=== PATIENT | female | born 1990 ===

== ENCOUNTER 2020-03-29 16:33 | Outpatient (REF) | payer OTHER, SELFPAY ==
[2020-03-29 17:06] LABS: MANUAL DIFF FLAG NO
[2020-03-29 17:10] LABS: Basophils Percent Auto 0.3 % (0-2); Eosinophils Absolute Auto 0.2 X10*3/uL (0.0-0.4); Eosinophils Percent Auto 1.7 % (0-4); Hematocrit 39.5 % (37-47); Hemoglobin 12.3 g/dl (12.0-16.0); Imm Gran Abs Auto 0.05 X10*3/uL (0.00-0.03); Imm Gran Pct Auto 0.4 % (0.0-0.4); Lymphocytes Absolute Auto 4.6 X10*3/uL (1.2-4.9); Lymphocytes Percent Auto 38.7 % (20-40); Mean Corpuscular HGB Conc 31.1 g/dl (31.0-35.0); Mean Corpuscular Hemoglobin 25.9 pg (27.0-33.0); Mean Corpuscular Volume 83.3 fL (80-98); Mean Platelet Volume 9.4 fL (9.4-12.3); Monocytes Absolute Auto 0.6 X10*3/uL (0.1-1.2); Monocytes Percent Auto 5.3 % (2-11); Neutrophils Absolute Auto 6.3 X10*3/uL (2.0-8.3); Neutrophils Percent Auto 53.6 % (45-73); Platelet Count 372 X10*3/uL (160-400); Red Blood Count 4.74 X10*6/uL (4.20-5.50); Red Cell Distribution Width 14.8 % (11.0-16.0); White Blood Count 11.8 X10*3/uL (4.8-10.8)
[2020-03-29 17:19] LABS: Estimated Average Glucose 111 mg/dL; Hemoglobin A1c % 5.5 %
[2020-03-29 17:29] LABS: Alanine Aminotransferase 23 U/L (0-31); Albumin Level 4.1 g/dL (3.5-5.0); Alkaline Phosphatase 83 U/L (39-117); Anion Gap 14 (12-20); Aspartate Amino Transferase 18 U/L (5-31); Bilirubin Total 0.2 mg/dL (0.0-1.0); Blood Urea Nitrogen 10 mg/dL (9-16); Calcium 8.9 mg/dL (8.4-10.2); Carbon Dioxide 26 mmol/L (22-29); Chloride 102 mmol/L (96-108); Cholesterol 204 mg/dL; Estimated Glomerular Filt Rate > 60; Glucose Random 92 mg/dL (60-115); HDL Cholesterol 48 mg/dL; LDL Cholesterol Calculated 127 mg/dl; Potassium 4.6 mmol/l (3.3-5.1); Sodium 137 mmol/L (135-145); Total Protein 6.8 g/dL (6.5-8.0); Triglycerides 145 mg/dL
[2020-03-29 17:52] LABS: Thyroid Stimulating Hormone 2.45 uIU/mL (0.32-4.0)
== END 2020-03-29 16:34 | disposition home or self-care (01) ==
LOC: HO.LAB 16:33
PROVIDERS: PCP Internal Medicine; Visit Provider Internal Medicine
DX: E28.2 Polycystic ovarian syndrome (principal); E88.9 Metabolic disorder, unspecified; E66.9 Obesity, unspecified; Z68.44 Body mass index [BMI] 60.0-69.9, adult; Z72.0 Tobacco use
CPT/HCPCS: 36415; 80053; 80061; 83036; 84443; 85025

== ENCOUNTER 2020-12-07 11:26 | Outpatient (REF) | payer OTHER, SELFPAY ==
[2020-12-07 14:06] LABS: MANUAL DIFF FLAG NO
[2020-12-07 14:15] LABS: Basophils Percent Auto 0.2 % (0-2); Eosinophils Absolute Auto 0.1 X10*3/uL (0.0-0.4); Eosinophils Percent Auto 1.3 % (0-4); Hematocrit 37.8 % (37-47); Hemoglobin 11.7 g/dl (12.0-16.0); Imm Gran Abs Auto 0.06 X10*3/uL (0.00-0.03); Imm Gran Pct Auto 0.6 % (0.0-0.4); Lymphocytes Absolute Auto 3.8 X10*3/uL (1.2-4.9); Lymphocytes Percent Auto 35.7 % (20-40); Mean Corpuscular Hemoglobin 25.3 pg (27.0-33.0); Mean Corpuscular Volume 81.8 fL (80-98); Mean Platelet Volume 9.8 fL (9.4-12.3); Monocytes Absolute Auto 0.6 X10*3/uL (0.1-1.2); Monocytes Percent Auto 5.6 % (2-11); Neutrophils Absolute Auto 6.1 X10*3/uL (2.0-8.3); Neutrophils Percent Auto 56.6 % (45-73); Platelet Count 402 X10*3/uL (160-400); Red Blood Count 4.62 X10*6/uL (4.20-5.50); Red Cell Distribution Width 15.5 % (11.0-16.0); White Blood Count 10.7 X10*3/uL (4.8-10.8)
[2020-12-07 14:27] LABS: Estimated Average Glucose 111 mg/dL; Hemoglobin A1c % 5.5 %
[2020-12-07 14:31] LABS: Alanine Aminotransferase 27 U/L (0-31); Albumin Level 4.3 g/dL (3.5-5.0); Alkaline Phosphatase 81 U/L (39-117); Anion Gap 15 (12-20); Aspartate Amino Transferase 22 U/L (5-31); Bilirubin Total 0.4 mg/dL (0.0-1.0); Blood Urea Nitrogen 8 mg/dL (9-16); Calcium 9.5 mg/dL (8.4-10.2); Carbon Dioxide 24 mmol/L (22-29); Chloride 103 mmol/L (96-108); Cholesterol 211 mg/dL; Estimated Glomerular Filt Rate > 60; Glucose Fasting 93 mg/dL (60-99); HDL Cholesterol 48 mg/dL; LDL Cholesterol Calculated 145 mg/dl; Potassium 4.8 mmol/L (3.3-5.1); Sodium 137 mmol/L (135-145); Total Protein 7.1 g/dL (6.5-8.0); Triglycerides 94 mg/dL
[2020-12-07 14:45] LABS: Thyroid Stimulating Hormone 2.13 uIU/mL (0.32-4.0)
== END 2020-12-07 11:27 | disposition home or self-care (01) ==
LOC: HO.10HDL 11:26
PROVIDERS: Visit Provider Internal Medicine
DX: Z00.01 Encounter for general adult medical examination with abnormal findings (principal); E66.01 Morbid (severe) obesity due to excess calories; M94.0 Chondrocostal junction syndrome [Tietze]; Z72.0 Tobacco use
CPT/HCPCS: 36415; 80053; 80061; 83036; 84443; 85025

== ENCOUNTER 2020-12-29 18:58 | Emergency (ER) | payer OTHER, SELFPAY ==
--- NOTE | ~2020-12-29 | US_ITS ---
EXAMINATION: US DIAGNOSTIC ULTRASOUND BREAST, LEFT CLINICAL INFORMATION: Inverted nipple., Pain COMPARISON: None. TECHNIQUE: Ultrasound of the breast is performed with real-time delaney scale imaging and color Doppler. FINDINGS: There is a irregular margin hypoechoic area behind the nipple on left. This measures 2 x 2 x 2 centimeters. There is internal vascularity. Labeled by the ammunition specialist at 12:00. Comparison imaging of the right breast shows no finding behind the nipple on the right. US/US breast LT limited IMPRESSION: This exam is abnormal Behind the nipple on left demonstrates a irregular margin hypoechoic structure emanating up to the nipple with internal vascularity. There is no shadowing. Differential may include an inflammatory process versus malignancy ASSESSMENT: BI-RADS 0: Incomplete - Need Additional Imaging Evaluation RECOMMENDATION: Diagnostic mammogram left breast. Surgical consultation recommended.
[2020-12-29 19:03] VITALS: BP 129/82; PULSE 89; RESP 16; TEMP 36.3; O2SAT 99; BMI 66.4
--- NOTE | 2020-12-29 21:33 | ED_ITS ---
HPI - General Adult General Chief complaint: General Medical Stated complaint: Lump on breast Time Seen by Provider: 12/29/20 21:23 Source: patient Mode of arrival: ambulatory Limitations: no limitations History of Present Illness HPI narrative: To the emergency room complaining of left-sided breast/nipple pain. Patient states that for several months she has had occasional pain in the left breast, however over the last few days she has noticed a lump under the nipple, no nipple discharge, patient states that her nipple is looking different, now slightly inverted. Patient denies fever, chills, no recent traum a/ring insertion Related Data Previous Rx's Medication Instructions Recorded cephalexin 750 mg capsule (Keflex) 750 mg PO BID #14 cap 12/29/20 doxycycline hyclate 100 mg capsule 100 mg PO DAILY #14 cap 12/29/20 Allergies Allergy/AdvReac Type Severity Reaction Status Date / Time No Known Allergies Allergy Verified 12/29/20 21:18 [No Known Allergies*] Review of Systems Review of Systems: Constitutional : No Weight loss, No Fever, No Chills, No Night Sweats, No Fatigue, No Malaise ENT/Mouth : No Hearing loss, No Ear Pain, No Nasal Congestion, No Sinus Pain, No Hoarseness, No sore throat, No Rhinorrhea, No Swallowing Difficulty Eyes: No Eye Pain, No Swelling, No Redness, No Foreign Body, No Discharge, No Vision Changes Cardiovascular : No Chest Pain, No SOB, No Dyspnea on Exertion, No Orthopnea, No Edema, No Palpitations Respiratory : No Cough, No Sputum, No Wheezing, No Smoke Exposure, No Dyspnea Gastrointestinal : No Nausea, No Vomiting, No Diarrhea, No Constipation, No abdominal Pain, No Hematochezia, No Melena Genitourinary : no irregular bleeding, No Dysuria, No Urinary Frequency, No Hematuria, No Urinary Incontinence, No Urgency, No Flank Pain, No Urinary Flow Changes, No Hesitancy Musculoskeletal : No joint pain, No Myalgias, No Joint Swelling Skin : Complaining of breast pain/nipple pain Neuro : No Weakness, No Numbness, No Paresthesias, No Loss of Consciousness, No Dizziness, No Headache Psych : No Anxiety/Panic, No Depression, No SI/HI/AH/VH, No Social Issues, Heme/Lymph: No Bruising, No Bleeding,No Lymphadenopathy Endocrine : No Polyuria, No Polydipsia, No Temperature Intolerance [facility] Family History Family History (Updated 12/29/20 @ 23:33 by Lawanda Monaco MD) Maternal Aunt Breast cancer Social History Social History Advance Directives: No Advance Directives Information Provided: No Patient : No Physical Exam Vital Signs: Vital Signs: Last Vital Signs Temp 97.4 F 12/29/20 19:03 Pulse 89 12/29/20 19:03 Resp 16 12/29/20 19:03 BP 129/82 12/29/20 19:03 Pulse Ox 99 12/29/20 19:03 Body Mass Index 66.4 Const: Other: Appearance: Alert. Oriented X3. No acute distress. Eyes: Pupils equal, round and reactive to light. ENT: Pharynx normal. Neck: Normal inspection. Neck supple. No lymph nodes noted. No crepitus CVS: Normal heart rate and rhythm. Pulses normal. Normal S1 and S2 Respiratory: No respiratory distress. Breath sounds normal. No Wheezing. No rales Abdomen: Soft and nontender. No rigidity. No distention. good BS x4 Skin: Skin warm and dry. Normal skin color. Normal skin turgor. Palpable 1 mm mass under the left nipple, no discharge from the nipple, nipple is flat, minimally inverted Extremities: No lower extremity edema. No lower extremity edema. No Lacerations. No Rash Neuro: Oriented X 3. No motor deficit. No sensory deficit. Moving all extermities. No slurred speech. Course Course Course Narrative: I discussed with the patient her ultrasound. The lump in her breast may be malignant versus inflammation versus infection I discussed with the patient that she needs to have close follow-up with Hematology [facility] and with her primary care physician. Patient states she has an appointment in 2 days with her PCP. Patient's white blood cell count is slightly elevated, may be due to infection. Patient will be started on antibiotics, discussed with the patient that she should not skip her appointment s. Medical Decision Making Lab Data Result diagrams: 12/29/20 21:45 12/29/20 21:45 Labs: Lab Results 12/29/20 12/29/20 Range/Units 21:45 21:45 WBC 12.4 H (4.8-10.8) X10*3/uL RBC 4.61 (4.20-5.50) X10*6/uL Hgb 11.6 L (12.0-16.0) g/dl Hct 37.3 (37-47) % MCV 80.9 (80-98) fL MCH 25.2 L (27.0-33.0) pg MCHC 31.1 (31.0-35.0) g/dl RDW 15.9 (11.0-16.0) % Plt Count 406 H (160-400) X10*3/uL MPV 9.1 L (9.4-12.3) fL Immature Gran % (Auto) 0.4 (0.0-0.4) % Neut % (Auto) 51.5 (45-73) % Lymph % (Auto) 40.6 H (20-40) % [place] % (Auto) 5.3 (2-11) % Eos % (Auto) 2.0 (0-4) % Baso % (Auto) 0.2 (0-2) % Lymph # (Auto) 5.0 H (1.2-4.9) X10*3/uL [place] # (Auto) 0.7 (0.1-1.2) X10*3/uL Eos # (Auto) 0.3 (0.0-0.4) X10*3/uL Baso # (Auto) 0.0 (0.0-0.2) X10*3/uL Abs Immat Gran (auto) 0.05 H (0.00-0.03) X10*3/uL Absolute Neuts (auto) 6.4 (2.0-8.3) X10*3/uL Absolute Nucleated RBC 0.000 (0.0-0.012) X10*3/uL Nucleated RBC % (auto) 0.0 (0.0-0.2) /100WBC Smear Tech's Comments VERIFIED Sodium 139 (135-145) mmol/L Potassium 4.6 (3.3-5.1) mmol/L Chloride 105 (96-108) mmol/L Carbon Dioxide 26 (22-29) mmol/L Anion Gap 13 (12-20) BUN 9 (9-16) mg/dL Creatinine 0.79 (0.5-1.4) mg/dL Estim Creat Clear Calc 144.9 Estimated GFR > 60 Random Glucose 99 (60-115) mg/dL Calcium 9.1 (8.4-10.2) mg/dL Discharge Plan Discharge Clinical Impression: Breast lump or mass Patient Disposition: Home, Self-Care Instructions: Breast Mass (ED) Additional Instructions: Please follow-up with your primary care physician tomorrow. Please make sure that you schedule an appointment with Hematology/Oncology and surgery. If you have any worsening or new symptoms, please return to the emergency room or call 911 Prescriptions: New cephalexin [Keflex] 750 mg capsule 750 mg PO BID Qty: 14 RF: 0 doxycycline hyclate 100 mg capsule 100 mg PO DAILY Qty: 14 RF: 0 Referrals: Terry Malin MD [Physician] - 2 days (Breast mass) Malcolm Wen MD [Physician] - 2 days
[2020-12-29 21:52] LABS: Basophils Percent Auto 0.2 % (0-2); Eosinophils Absolute Auto 0.3 X10*3/uL (0.0-0.4); Hematocrit 37.3 % (37-47); Hemoglobin 11.6 g/dl (12.0-16.0); Imm Gran Abs Auto 0.05 X10*3/uL (0.00-0.03); Imm Gran Pct Auto 0.4 % (0.0-0.4); Lymphocytes Percent Auto 40.6 % (20-40); MANUAL DIFF FLAG SCAN; Mean Corpuscular HGB Conc 31.1 g/dl (31.0-35.0); Mean Corpuscular Hemoglobin 25.2 pg (27.0-33.0); Mean Corpuscular Volume 80.9 fL (80-98); Mean Platelet Volume 9.1 fL (9.4-12.3); Monocytes Absolute Auto 0.7 X10*3/uL (0.1-1.2); Monocytes Percent Auto 5.3 % (2-11); Neutrophils Absolute Auto 6.4 X10*3/uL (2.0-8.3); Neutrophils Percent Auto 51.5 % (45-73); Platelet Count 406 X10*3/uL (160-400); Red Blood Count 4.61 X10*6/uL (4.20-5.50); Red Cell Distribution Width 15.9 % (11.0-16.0); SCAN SMEAR FLAG 1; White Blood Count 12.4 X10*3/uL (4.8-10.8)
[2020-12-29 22:09] LABS: Anion Gap 13 (12-20); Blood Urea Nitrogen 9 mg/dL (9-16); Calcium 9.1 mg/dL (8.4-10.2); Carbon Dioxide 26 mmol/L (22-29); Chloride 105 mmol/L (96-108); Creatinine Clr Calc Pharmacy 144.9; Estimated Glomerular Filt Rate > 60; Glucose Random 99 mg/dL (60-115); Potassium 4.6 mmol/L (3.3-5.1); Sodium 139 mmol/L (135-145)
[2020-12-29 22:38] LABS: SLIDE REVIEW VERIFIED
[2020-12-29 23:51] VITALS: BP 132/77; PULSE 78; RESP 17; TEMP 36.9; O2SAT 97
== END 2020-12-29 23:53 | disposition home or self-care (01) ==
PROVIDERS: Emergency Provider Emergency Medicine; PCP Internal Medicine
DX: N63.20 Unspecified lump in the left breast, unspecified quadrant (principal); Z79.899 Other long term (current) drug therapy
CPT/HCPCS: 36415; 76642; 80048; 85025; 99284

== ENCOUNTER 2021-01-06 08:22 | Outpatient (REF) | payer OTHER, SELFPAY ==
--- NOTE | ~2021-01-06 | MM_ITS ---
EXAMINATION: MM DIAGNOSTIC DIGITAL BREAST TOMOSYNTHESIS, BILATERAL US TARGETED LEFT BREAST CLINICAL INFORMATION: Lump behind left nipple with pain The lifetime risk of breast cancer based on the Tyrer-Cuzick Model is 11%. COMPARISON: Mammography: None. Ultrasound examination of 12/29/2020 TECHNIQUE: Digital breast tomosynthesis is performed in both the craniocaudal and mediolateral oblique views along with computer-aided detection (CAD). Synthesized 2D images are generated from the tomosynthesis. Targeted left breast ultrasound. FINDINGS: Mammogram:The breasts are almost entirely fatty (ACR BI-RADS breast composition Category a). No abnormal mass or suspicious grouping of microcalcifications is seen within the right breast. There is a region of ill-defined density seen within the anterior inferior aspect of the left breast approximately 3 cm from the nipple. Ultrasound: Targeted left breast ultrasound demonstrated a hypoechoic region in the retroareolar region with what appears to be some edema or insinuation of other process within the surrounding tissue. There is noted to be some internal vascularity but is difficult to tell whether this may represent vessels passing through the hypoechoic region. No definite ultrasound abnormality is seen about the inferior aspect 3 cm from the nipple. Results are discussed with the patient at time of visit. MM/MM tomosynthesis diagnostic BI IMPRESSION: Mammography demonstrating irregular density within the inferior margin of the left breast. Ultrasound demonstrates hypoechoic mass with question internal vascularity or vessels passing through this region with the appearance of possible edema within surrounding soft tissues. This is unchanged from previous examination of approximately 1 week ago. Patient states that she has had pain in the retroareolar region for close to a year but only has 3 weeks of symptoms of developing palpable mass. She denies nipple discharge. No definite ultrasound correlate to the faint density about the inferior aspect of the left breast is seen. Patient states that the lesion has gotten smaller since being on antibiotics and is less painful with only occasional pain being present. This may still represent inflammatory process and therefore, repeat ultrasound in 4-6 weeks is recommended. If lesion is still present recommend ultrasound-guided biopsy. ASSESSMENT: BI-RADS 3: Probably Benign RECOMMENDATION: Diagnostic left breast ultrasound in 4-6 weeks. This patient's information was entered into a reminder system with a target due date for their next mammogram.
== END 2021-01-06 08:23 | disposition home or self-care (01) ==
LOC: HO.MAMMO 08:22
PROVIDERS: PCP Internal Medicine; Visit Provider Internal Medicine Medical Oncology
DX: N63.25 Unspecified lump in the left breast, overlapping quadrants (principal); N64.4 Mastodynia
CPT/HCPCS: 76642; 77062; 77066

== ENCOUNTER 2021-03-16 12:36 | Outpatient (REF) | payer OTHER, SELFPAY ==
--- NOTE | ~2021-03-16 | US_ITS ---
EXAMINATION: US DIAGNOSTIC ULTRASOUND BREAST, LEFT CLINICAL INFORMATION: 31-year-old with left retroareolar lesion, likely mastitis. Patient improved post antibiotics. COMPARISON: Targeted left breast ultrasound 01/08/2021, 01/06/2021, diagnostic mammography 01/06/2021. TECHNIQUE: Ultrasound left breast is targeted to the retroareolar region. Grayscale imaging and color Doppler are performed without and with harmonics. FINDINGS: The retroareolar hypoechoic area is decreased in size from prior exam. Current measurements are 1.3 x 0.7 x 1.0 cm compared with prior measurements 2.1 x 1.7 x 1.4 cm. Hyperemia on color Doppler is decreased. There is no interval new cystic or solid mass or focal duct ectasia. No interval skin thickening or edema tracking in soft tissue planes. Results are discussed with the patient at time of visit. Findings suggest resolving subareolar mastitis. Recommend follow-up mammography and left breast ultrasound in 6 months. US/US breast LT limited IMPRESSION: Left retroareolar findings are improved from prior study 01/06/2021, likely resolving subareolar mastitis. ASSESSMENT: BI-RADS 3: Probably Benign RECOMMENDATION: Diagnostic left mammography and targeted left breast ultrasound in 6 months. This patient's information was entered into a reminder system with a target due date for their next mammogram.
== END 2021-03-16 12:37 | disposition home or self-care (01) ==
LOC: HO.MAMMO 12:36
PROVIDERS: PCP Internal Medicine; Visit Provider Internal Medicine
DX: N63.20 Unspecified lump in the left breast, unspecified quadrant (principal)
CPT/HCPCS: 76642

== ENCOUNTER 2021-07-28 12:51 | Outpatient (REF) | payer OTHER, SELFPAY ==
[2021-07-28 14:14] LABS: COVID-19 Test Negative (Negative); IDNOW Serial# 55D5AD1C
== END 2021-07-28 12:52 | disposition home or self-care (01) ==
LOC: HO.LAB 12:51
PROVIDERS: Visit Provider Internal Medicine
DX: Z20.822 Contact with and (suspected) exposure to COVID-19 (principal)
CPT/HCPCS: 87635; C9803

== ENCOUNTER 2021-08-31 13:16 | Emergency (ER) | payer OTHER, SELFPAY ==
--- NOTE | ~2021-08-31 | XR_ITS ---
EXAMINATION: XR CHEST CLINICAL INFORMATION: Shortness of breath. COMPARISON: 07/11/2018 chest radiographs. TECHNIQUE: 2 views of the chest were obtained. FINDINGS: No significant abnormality is noted involving the heart, lungs, mediastinum, bony thorax or soft tissues. XR/XR chest 2V IMPRESSION: No acute cardiopulmonary process.
[2021-08-31 13:35] VITALS: BP 137/93; PULSE 100; RESP 24; TEMP 36.6; O2SAT 97; BMI 66.4
[2021-08-31] MEDS: Albuterol/Iprat 2.5/0.5MG 3 ML AMPUL.NEB INHALE (13:43)
[2021-08-31 13:45] VITALS: PULSE 100; RESP 20; O2SAT 98
[2021-08-31] MEDS: methylPREDNISolone Sod Succ 125 MG/2 ML VIAL IVPUSH (14:00)
[2021-08-31] MEDS: guaiFENesin 200 MG/10 ML 10 ML LIQUID PO (14:00)
[2021-08-31 14:02] LABS: MANUAL DIFF FLAG NO
--- NOTE | 2021-08-31 14:03 | ED.ASTHMA ---
HPI - Asthma General Chief Complaint: Asthma Stated Complaint: asthma, bad cough, sob Time Seen by Provider: 08/31/21 13:41 Source: patient Mode of arrival: ambulatory Limitations: no limitations History of Present Illness HPI Narrative: A 31-year-old female with past medical history of asthma presents for an asthma attack that started 2 days ago. Patient has had cough that is worsening, and used her albuterol inhaler this morning, and it did not relieve her symptoms. Patient has had sneezing, cough, runny nose, mild sore throat, chest congestion. States she vomited once yesterday. Patient states it has been years since she has had an asthma attack. Related Data Previous Rx's Medication Instructions Recorded cephalexin 750 mg capsule (Keflex) 750 mg PO BID #14 caps 12/29/20 doxycycline hyclate 100 mg capsule 100 mg PO DAILY #14 caps 12/29/20 albuterol sulfate 90 mcg/actuation 2 puff inhalation Q4-6H PRN 08/31/21 aerosol inhaler shortness of breath or wheezing #6.7 grams benzonatate 200 mg capsule 200 mg PO TID 5 days #15 caps 08/31/21 codeine 10 mg-guaifenesin 100 mg/5 5 ml PO Q6H PRN cough #120 mL 08/31/21 mL oral liquid prednisone 20 mg tablet 60 mg PO DAILY 5 days #15 tabs 08/31/21 Allergies Allergy/AdvReac Type Severity Reaction Status Date / Time No Known Allergies Allergy Verified 12/29/20 21:18 [No Known Allergies*] Review of Systems Constitutional: Constitutional: Denies body ache(s), Denies chills, Denies fatigue, Denies fever(s), Denies headache(s), Denies malaise and Denies weakness Eyes: Eyes: Denies diplopia ENT: Denies vertigo, Denies dizziness, Denies otalgia, Denies headache(s), Denies mouth pain, Reports nasal congestion, Reports nasal discharge, Denies post nasal drip, Denies sinus pain, Denies sinus pressure, Denies sore throat and Denies throat swelling Cardiovascular: Cardiovascular: Denies chest pain, Denies syncope, Denies leg edema, Denies lightheadedness, Denies Loss of Consciousness, Denies palpitations and Denies dyspnea Respiratory: Respiratory: Reports chest congestion, Reports cough, Denies dyspnea, Denies stridor and Reports wheezing Gastrointestinal: Gastrointestinal: Reports abdominal pain, Denies hematochezia, Denies constipation, Denies diarrhea, Reports nausea and Reports vomiting Musculoskeletal: Musculoskeletal: Reports no additional musculoskeletal complaints Neurologic: Denies confusion, Denies vertigo, Denies dizziness, Denies syncope, Denies headache(s) and Denies weakness Psychiatric: Psychiatric: Denies anxiety, Denies confusion and Denies depression Endocrine: Endocrine: Denies fatigue and Denies palpitations Allergic/Immunologic: Allergic/Immunologic: Denies throat swelling and Reports wheezing PMFSH Past Medical History Medical History Asthma Surgical History Hx of tonsillectomy Family History Family History (Updated 01/05/21 @ 08:13 by Maren Corey) Maternal Aunt Breast cancer Mother Diabetes Fibromyalgia Maternal Grandmother Breast cancer Father FHx: kidney cancer Social History Social History (Updated 01/05/21 @ 08:16 by Maren Corey) Household Members: Spouse and Children Alcohol intake: current Alcohol intake frequency: holidays/special occasions only Alcohol type: beer and wine Patient Tobacco Use Status: Current everyday Tobacco user Tobacco use type: Cigarette Advance Directives: No Advance Directives Information Provided: Yes Physical Exam Vital Signs: Vital Signs: Last Vital Signs Temp 98 F 08/31/21 13:35 Pulse 93 08/31/21 15:58 Resp 20 08/31/21 13:45 BP 137/93 H 08/31/21 13:35 Pulse Ox 97 08/31/21 15:58 O2 Del Method 08/31/21 15:58 BMI result Body Mass Index 66.4 Const: General: No confusion Nutritional Appearance: well nourished Orientation/consciousness: No confusion Limitations: no limitations HEENT: Head: Yes normal to inspection, Yes normocephalic and Yes atraumatic Ears: hearing grossly normal bilaterally, external ears normal, TM's normal bilaterally and EAC's normal General nose exam: Normal external nose present Face and sinus: Yes normal facial exam and Yes sinuses nontender Mouth: Normal oral and palatal mucosa present Throat: Yes posterior oropharynx normal Eyes: Conjunctivae: conjunctivae normal Pupils: Equal, round and reactive pupils present EOM: EOMs intact bilaterally Neck: Neck: Yes full ROM, Yes no lymphadenopathy and Yes supple Resp: Effort & Inspection: able to speak in complete sentences, no pursed lip breathing, no respiratory distress, tachypneic, no tripod positioning and no use of accessory muscles Auscultation: no crackles, no rales, rhonchi, wheezes and diminished lung sounds Cardio: Rate: regular rate Rhythm: regular rhythm Heart sounds: S1 normal heart sound present and S2 normal heart sound present GI: Inspection: Yes normal to inspection Palpation (GI): Soft to palpation, nontender, no guarding and not rigid Percussion: Yes normal to percussion Auscultation: normal bowel sounds Skin: General skin exam: no rashes or lesions noted Neuro: General: No confusion Cranial nerves: Yes Equal, round and reactive pupils present Extrem: General: Yes normal to inspection and Yes full ROM Psych: Appearance: grossly normal Affect: normal affect Attitude: cooperative Thought process: Normal thought process present Course Course Course Narrative: 31-year-old female with a past medical history of asthma exacerbations in the distant past, presents with upper respiratory symptoms and asthma exacerbation. On exam, patient is satting 100% on room air, is tachypneic at 24, not tachycardic. Patient has tight diminished lungs that are wheezy and rhonchorous. Will get COVID and flu swabs, give Solu-Medrol, get chest x-ray, give neb, get labs, give cough syrup Reevaluation(s) Reevaluation #1: Labs are unremarkable, COVID and flu negative, On reexamination, patient is moving more air, still wheezy and rhonchorous Will prescribe prednisone, albuterol inhaler, Tessalon Perles, coughs syrup for night FINDINGS: No significant abnormality is noted involving the heart, lungs, mediastinum, bony thorax or soft tissues. XR/XR chest 2V IMPRESSION: No acute cardiopulmonary process. MDM - Asthma Lab Data Result diagrams: 08/31/21 13:58 08/31/21 13:58 Labs: Lab Results 08/31/21 08/31/21 08/31/21 Range/Units 13:58 13:58 13:58 WBC 7.9 (4.8-10.8) X10*3/uL RBC 5.18 (4.20-5.50) X10*6/uL Hgb 12.5 (12.0-16.0) g/dl Hct 40.5 (37.0-47.0) % MCV 78.2 L (80.0-98.0) fL MCH 24.1 L (27.0-33.0) pg MCHC 30.9 L (31.0-35.0) g/dl RDW 16.9 H (11.0-16.0) % Plt Count 362 (160-400) X10*3/uL MPV 9.9 (9.4-12.3) fL Immature Gran % (Auto) 0.6 H (0.0-0.4) % Neut % (Auto) 67.8 (45-73) % Lymph % (Auto) 21.1 (20-40) % [place] % (Auto) 7.7 (2-11) % Eos % (Auto) 2.7 (0-4) % Baso % (Auto) 0.1 (0-2) % Lymph # (Auto) 1.7 (1.2-4.9) X10*3/uL [place] # (Auto) 0.6 (0.1-1.2) X10*3/uL Eos # (Auto) 0.2 (0.0-0.4) X10*3/uL Baso # (Auto) 0.0 (0.0-0.2) X10*3/uL Abs Immat Gran (auto) 0.05 H (0.00-0.03) X10*3/uL Absolute Neuts (auto) 5.4 (2.0-8.3) x10*3/uL Absolute Nucleated RBC 0.000 (0.0-0.012) X10*3/uL Nucleated RBC % (auto) 0.0 (0.0-0.2) /100WBC Sodium 136 (135-145) mmol/L Potassium 4.1 (3.3-5.1) mmol/L Chloride 103 (96-108) mmol/L Carbon Dioxide 25 (22-29) mmol/L Anion Gap 12 (12-20) BUN 6 L (9-16) mg/dL Creatinine 0.84 (0.5-1.4) mg/dL Estim Creat Clear Calc 135.1 Estimated GFR > 60 Random Glucose 94 (60-115) mg/dL Calcium 8.7 (8.4-10.2) mg/dL Total Bilirubin 0.3 (0.0-1.0) mg/dL AST 20 (5-31) U/L ALT 21 (0-31) U/L Alkaline Phosphatase 86 (39-117) U/L Total Protein 7.2 (6.5-8.0) g/dL Albumin 4.3 (3.5-5.0) g/dL COVID-19 (NAV) (Negative) COVID-19 Clin Com Influenza Type A (ANDREIA) Negative (Negative) Influenza Type B (ANDREIA) Negative (Negative) Influenza A & B Note See Note 08/31/21 Range/Units 13:58 WBC (4.8-10.8) X10*3/uL RBC (4.20-5.50) X10*6/uL Hgb (12.0-16.0) g/dl Hct (37.0-47.0) % MCV (80.0-98.0) fL MCH (27.0-33.0) pg MCHC (31.0-35.0) g/dl RDW (11.0-16.0) % Plt Count (160-400) X10*3/uL MPV (9.4-12.3) fL Immature Gran % (Auto) (0.0-0.4) % Neut % (Auto) (45-73) % Lymph % (Auto) (20-40) % [place] % (Auto) (2-11) % Eos % (Auto) (0-4) % Baso % (Auto) (0-2) % Lymph # (Auto) (1.2-4.9) X10*3/uL [place] # (Auto) (0.1-1.2) X10*3/uL Eos # (Auto) (0.0-0.4) X10*3/uL Baso # (Auto) (0.0-0.2) X10*3/uL Abs Immat Gran (auto) (0.00-0.03) X10*3/uL Absolute Neuts (auto) (2.0-8.3) x10*3/uL Absolute Nucleated RBC (0.0-0.012) X10*3/uL Nucleated RBC % (auto) (0.0-0.2) /100WBC Sodium (135-145) mmol/L Potassium (3.3-5.1) mmol/L Chloride (96-108) mmol/L Carbon Dioxide (22-29) mmol/L Anion Gap (12-20) BUN (9-16) mg/dL Creatinine (0.5-1.4) mg/dL Estim Creat Clear Calc Estimated GFR Random Glucose (60-115) mg/dL Calcium (8.4-10.2) mg/dL Total Bilirubin (0.0-1.0) mg/dL AST (5-31) U/L ALT (0-31) U/L Alkaline Phosphatase (39-117) U/L Total Protein (6.5-8.0) g/dL Albumin (3.5-5.0) g/dL COVID-19 (NAV) Negative (Negative) COVID-19 Clin Com See Note Influenza Type A (ANDREIA) (Negative) Influenza Type B (ANDREIA) (Negative) Influenza A & B Note Discharge Plan Discharge Clinical Impression: Asthma with acute exacerbation Patient Disposition: Home, Self-Care Instructions: Bronchospasm (ED), How Your Lungs Work (ED) Additional Instructions: Please use your albuterol inhaler, 2 puffs every 4 hours for the next 4 days. You had your dose of prednisone by IV today. I have prescribed you 5 more days, start the prednisone tomorrow morning. I have also prescribed benzonatate, these are pills that if you take as prescribed may help with her cough. I have also prescribed cough syrup for night. If you have any trouble breathing, fevers, shortness of breath, worsening symptoms, please return to emergency room. As we discussed, please call your primary care provider and tell them you are in the emergency room, they may be able to get you in to be seen sooner rather than later. Prescriptions: New albuterol sulfate 90 mcg/actuation HFA aerosol inhaler 2 puff inhalation Q4-6H PRN (Reason: shortness of breath or wheezing) Qty: 6.7 0RF prednisone 20 mg tablet 60 mg PO DAILY 5 Days Qty: 15 0RF benzonatate 200 mg capsule 200 mg PO TID 5 Days Qty: 15 0RF codeine-guaifenesin 10-100 mg/5 mL liquid 5 ml PO Q6H PRN (Reason: cough) Qty: 120 0RF No Action cephalexin [Keflex] 750 mg capsule 750 mg PO BID Qty: 14 0RF doxycycline hyclate 100 mg capsule 100 mg PO DAILY Qty: 14 0RF Stand Alone Forms: Work/School Release Interventions: ED Discharge Assessment Last Done: 08/31/21 16:02 Discharge Date/Time: 08/31/21 16:04
[2021-08-31 14:12] LABS: Basophils Percent Auto 0.1 % (0-2); Eosinophils Absolute Auto 0.2 X10*3/uL (0.0-0.4); Eosinophils Percent Auto 2.7 % (0-4); Hematocrit 40.5 % (37.0-47.0); Hemoglobin 12.5 g/dl (12.0-16.0); Imm Gran Abs Auto 0.05 X10*3/uL (0.00-0.03); Imm Gran Pct Auto 0.6 % (0.0-0.4); Lymphocytes Absolute Auto 1.7 X10*3/uL (1.2-4.9); Lymphocytes Percent Auto 21.1 % (20-40); Mean Corpuscular HGB Conc 30.9 g/dl (31.0-35.0); Mean Corpuscular Hemoglobin 24.1 pg (27.0-33.0); Mean Corpuscular Volume 78.2 fL (80.0-98.0); Mean Platelet Volume 9.9 fL (9.4-12.3); Monocytes Absolute Auto 0.6 X10*3/uL (0.1-1.2); Monocytes Percent Auto 7.7 % (2-11); Neutrophils Absolute Auto 5.4 x10*3/uL (2.0-8.3); Neutrophils Percent Auto 67.8 % (45-73); Platelet Count 362 X10*3/uL (160-400); Red Blood Count 5.18 X10*6/uL (4.20-5.50); Red Cell Distribution Width 16.9 % (11.0-16.0); White Blood Count 7.9 X10*3/uL (4.8-10.8)
[2021-08-31 14:23] LABS: Alanine Aminotransferase 21 U/L (0-31); Albumin Level 4.3 g/dL (3.5-5.0); Alkaline Phosphatase 86 U/L (39-117); Anion Gap 12 (12-20); Aspartate Amino Transferase 20 U/L (5-31); Bilirubin Total 0.3 mg/dL (0.0-1.0); Blood Urea Nitrogen 6 mg/dL (9-16); Calcium 8.7 mg/dL (8.4-10.2); Carbon Dioxide 25 mmol/L (22-29); Chloride 103 mmol/L (96-108); Creatinine Clr Calc Pharmacy 135.1; Estimated Glomerular Filt Rate > 60; Glucose Random 94 mg/dL (60-115); Potassium 4.1 mmol/L (3.3-5.1); Sodium 136 mmol/L (135-145); Total Protein 7.2 g/dL (6.5-8.0)
[2021-08-31 14:26] LABS: Influenza A Negative (Negative); Influenza B2 Negative (Negative)
[2021-08-31 14:27] LABS: COVID-19 Test Negative (Negative); IDNOW Serial# 16C4AD1C
[2021-08-31 15:58] VITALS: PULSE 93; O2SAT 97
== END 2021-08-31 16:04 | disposition home or self-care (01) ==
PROVIDERS: Physician Assistant; Emergency Provider Student in an Organized Health Care Education/Training Program
DX: J45.901 Unspecified asthma with (acute) exacerbation (principal); F17.210 Nicotine dependence, cigarettes, uncomplicated; Z20.822 Contact with and (suspected) exposure to COVID-19
CPT/HCPCS: 71046; 80053; 85025; 87502; 87635; 94640; 96374; 99284; J2930

== ENCOUNTER → 2021-11-01 13:34 | Outpatient (BNVA) | payer OTHER, SELFPAY | PROVIDERS: PCP Internal Medicine; Visit Provider Physician Assistant | DX: E66.01 Morbid (severe) obesity due to excess calories (principal); Z68.44 Body mass index [BMI] 60.0-69.9, adult; D64.9 Anemia, unspecified; J45.909 Unspecified asthma, uncomplicated; Z11.0 Encounter for screening for intestinal infectious diseases | CPT/HCPCS: 83013; 99202; 99211; 99212 ==

== ENCOUNTER 2021-11-01 17:07 | Outpatient (REF) | payer OTHER, SELFPAY ==
[2021-11-02 13:55] LABS: H Pylori Breath Test Negative (Negative)
== END 2021-11-01 17:08 | disposition home or self-care (01) ==
LOC: HO.LNP 17:07
PROVIDERS: Visit Provider Physician Assistant
DX: Z13.89 Encounter for screening for other disorder (principal)
CPT/HCPCS: 83013

== ENCOUNTER 2021-11-22 07:50 | Outpatient (REF) | payer OTHER, SELFPAY ==
[2021-11-22 08:24] LABS: MANUAL DIFF FLAG NO
[2021-11-22 09:06] LABS: Basophils Percent Auto 0.2 % (0-2); Eosinophils Absolute Auto 0.2 X10*3/uL (0.0-0.4); Eosinophils Percent Auto 1.7 % (0-4); Hematocrit 38.8 % (37.0-47.0); Hemoglobin 12.2 g/dl (12.0-16.0); Imm Gran Abs Auto 0.04 X10*3/uL (0.00-0.03); Imm Gran Pct Auto 0.4 % (0.0-0.4); Lymphocytes Absolute Auto 3.8 X10*3/uL (1.2-4.9); Lymphocytes Percent Auto 37.9 % (20-40); Mean Corpuscular HGB Conc 31.4 g/dl (31.0-35.0); Mean Corpuscular Hemoglobin 25.1 pg (27.0-33.0); Mean Corpuscular Volume 79.8 fL (80.0-98.0); Mean Platelet Volume 9.7 fL (9.4-12.3); Monocytes Absolute Auto 0.5 X10*3/uL (0.1-1.2); Monocytes Percent Auto 5.1 % (2-11); Neutrophils Absolute Auto 5.4 x10*3/uL (2.0-8.3); Neutrophils Percent Auto 54.7 % (45-73); Platelet Count 388 X10*3/uL (160-400); Red Blood Count 4.86 X10*6/uL (4.20-5.50); Red Cell Distribution Width 16.6 % (11.0-16.0); White Blood Count 9.9 X10*3/uL (4.8-10.8)
[2021-11-22 09:16] LABS: Estimated Average Glucose 108 mg/dL; Hemoglobin A1c % 5.4 %
[2021-11-22 09:49] LABS: Alanine Aminotransferase 28 U/L (0-31); Albumin Level 4.1 g/dL (3.5-5.0); Alkaline Phosphatase 84 U/L (39-117); Anion Gap 15 (12-20); Aspartate Amino Transferase 23 U/L (5-31); Bilirubin Total 0.4 mg/dL (0.0-1.0); Blood Urea Nitrogen 11 mg/dL (9-16); Carbon Dioxide 25 mmol/L (22-29); Chloride 102 mmol/L (96-108); Cholesterol 211 mg/dL; Estimated Glomerular Filt Rate > 60; Glucose Fasting 94 mg/dL (60-99); HDL Cholesterol 48 mg/dL; LDL Cholesterol Calculated 145 mg/dl; Potassium 4.9 mmol/L (3.3-5.1); Sodium 137 mmol/L (135-145); Total Protein 6.8 g/dL (6.5-8.0); Triglycerides 94 mg/dL
[2021-11-22 09:56] LABS: TSH reflex Free T4 1.73 uIU/mL (0.32-4.0); Vitamin D 25-OH Total 17.6 ng/mL (>30)
[2021-11-22 09:58] LABS: Cholesterol 206 mg/dL; HDL Cholesterol 48 mg/dL; LDL Cholesterol Calculated 140 mg/dl; Thyroid Stimulating Hormone 1.61 uIU/mL (0.32-4.0); Triglycerides 92 mg/dL
[2021-11-22 10:06] LABS: Folate 12.4 ng/mL (> or = 4.0); Vitamin B12 377 pg/mL (200-900)
[2021-11-23 14:03] LABS: Calcium (PTHI) 9.1 mg/dL (8.6-10.2); PTHI 62 pg/mL (16-77)
[2021-11-26 18:55] LABS: Zinc 71 mcg/dL (60-130)
[2021-11-27 06:22] LABS: Vitamin B1 8 nmol/L (8-30)
[2021-11-29 10:26] LABS: Vitamin A 40 mcg/dL (38-98)
== END 2021-11-22 07:51 | disposition home or self-care (01) ==
LOC: HO.LAB 07:50
PROVIDERS: Internal Medicine; Visit Provider Physician Assistant
DX: Z01.818 Encounter for other preprocedural examination (principal); D64.9 Anemia, unspecified; E66.01 Morbid (severe) obesity due to excess calories; J45.909 Unspecified asthma, uncomplicated; E78.5 Hyperlipidemia, unspecified
CPT/HCPCS: 36415; 80053; 80061; 82306; 82607; 82746; 83036; 83970; 84425; 84443; 84590; 84630; 85025

== ENCOUNTER 2021-11-28 13:16 | Outpatient (REF) | payer OTHER, SELFPAY ==
--- NOTE | ~2021-11-28 | MM_ITS ---
EXAMINATION: MM DIAGNOSTIC DIGITAL BREAST TOMOSYNTHESIS, LEFT US DIAGNOSTIC ULTRASOUND BREAST, LEFT CLINICAL INFORMATION: 31-year-old for short term six-month follow-up resolving subareolar mastitis left breast noted on prior imaging. COMPARISON: Mammography: 01/06/2021; left breast ultrasound 03/16/2021, 01/06/2021, and 12/29/2020. TECHNIQUE: Digital breast tomosynthesis is performed in both the craniocaudal and mediolateral oblique views along with computer-aided detection (CAD). Synthesized 2D images are generated from the tomosynthesis. Ultrasound left breast is targeted to the retroareolar and periareolar region using grayscale imaging and color Doppler without and with harmonics. FINDINGS: The breasts are almost entirely fatty (ACR BI-RADS breast composition Category a). Background stromal markings appear normal. There is no skin thickening or coarsening of the stromal markings. No duct ectasia. No mass or architectural abnormality. The axilla and skin contours are unremarkable. Ultrasound left breast shows no subareolar cystic or solid mass, duct ectasia, or hyperemia. No skin thickening or edema tracking in soft tissue planes. Results are discussed with the patient at time of visit. Patient confirms that she has no ongoing symptoms left breast, resolved since previous imaging. MM/MM tomosynthesis diagnostic LT IMPRESSION: -No mammographic evidence of malignancy or residual inflammatory changes. -Unremarkable targeted left breast ultrasound. ASSESSMENT: BI-RADS 1: Negative RECOMMENDATION: Routine annual mammography screening, beginning age 40, or earlier as clinical risk factors warrant. This patient's information was entered into a reminder system with a target due date for their next mammogram.
== END 2021-11-28 13:17 | disposition home or self-care (01) ==
LOC: HO.MAMMO 13:16
PROVIDERS: Visit Provider Internal Medicine
DX: N61.0 Mastitis without abscess (principal)
CPT/HCPCS: 76642; 77061; 77065

== ENCOUNTER → 2021-12-01 13:17 | Outpatient (BNVA) | payer OTHER, SELFPAY | PROVIDERS: PCP Internal Medicine; Visit Provider Dietitian, Registered | DX: E66.01 Morbid (severe) obesity due to excess calories (principal) | CPT/HCPCS: 97802 ==

== ENCOUNTER → 2021-12-14 12:53 | Outpatient (REF) | payer OTHER, SELFPAY | LOC: HO.SL 12:53 | PROVIDERS: Visit Provider Physician Assistant | DX: G47.33 Obstructive sleep apnea (adult) (pediatric) (principal) | CPT/HCPCS: 95806 ==

== ENCOUNTER 2022-09-21 11:49 | Outpatient (REF) | payer OTHER, SELFPAY ==
[2022-09-25 07:28] LABS: TS Negative Control Passed; TS Panel A 0; TS Panel B 0; TS Positive Control Passed; TSpotTB Negative (Negative)
== END 2022-09-21 11:50 | disposition home or self-care (01) ==
LOC: HO.LAB 11:49
PROVIDERS: PCP Internal Medicine; Visit Provider Internal Medicine
DX: Z11.1 Encounter for screening for respiratory tuberculosis (principal)
CPT/HCPCS: 36415; 86481

== ENCOUNTER 2022-09-24 13:01 | Outpatient (AMB) | payer OTHER, SELFPAY ==
--- NOTE | 2022-09-24 13:21 | AM.OFFVISNUR ---
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
== END 2022-09-24 13:22 | disposition home or self-care (01) ==
PROVIDERS: PCP Internal Medicine; Visit Provider Internal Medicine
DX: Z11.1 Encounter for screening for respiratory tuberculosis (principal)
CPT/HCPCS: 86580

== ENCOUNTER 2023-02-28 15:04 | Outpatient (AMB) | payer OTHER, SELFPAY ==
[2023-02-28 15:06] VITALS: BP 110/78; BMI 58.9
--- NOTE | 2023-02-28 15:06 | MHC.PC.OV ---
Vital Signs 02/28/23 15:06 Height 5 ft 4 in Weight 343 lb BMI 58.9 BP 110/78 Blood Pressure Location Lt brachial Position Sitting Intake Visit Reasons: PE Intake Note: Patient here for a physical exam Assisted Living Manager Required: No Accompanied by: Self / Same As Patient Allergies No Known Allergies [No Known Allergies*] Allergy (Verified 02/28/23 15:30) Medication List - Last Reconciled 02/28/23 by Leticia Linares MD albuterol sulfate 90 mcg/actuation 2 puffs inhalation Q4-6H PRN bupropion HCl 300 mg PO QAM 90 days cholecalciferol (vitamin D3) 25 mcg PO DAILY 90 days simethicone (Gas Relief (simethicone)) 180 mg PO BID PRN 7 days Tobacco use date assessed: 02/28/23 Dental Screening Dental Screen Date: 02/28/23 Did you have a dental visit in the last 12 months?: Yes Did you have a dental problem in the last 6 months where you did not have access to dental care?: No Was dental information given to patient?: Patient has dentist HPI HPI Comments History of Present Illness Details This is a 33-year-old female with mild major depression and morbid obesity that comes for her physical exam. Depression stable with bupropion. She is morbidly obese with a BMI of 58.9 and try weight management for weight loss surgery but backed out. I will prescribe Wegovy to see if this helps. Pap smears are up to date as per patient. [facility] Medical History Asthma Surgical History Hx of tonsillectomy Family History Maternal Aunt Breast cancer Mother Diabetes Fibromyalgia Maternal Grandmother Breast cancer Father End-stage renal disease on hemodialysis Diabetes Father No problems noted. Family/Other Mental health disorder Brother No problems noted. Social History Household Members: Spouse and Children Housing: Apartment Alcohol intake: current Alcohol intake frequency: holidays/special occasions only Alcohol type: beer Patient Tobacco Use Status: Current everyday Tobacco user Tobacco use type: Cigarette Cigarettes Per Day: 8 e-Cigarette/Vaping Use: Never Used Second Hand Smoke Exposure: No service: No Current occupational status: employed Current occupational exposures/hazards: No Cognitive needs: No Hearing needs: No Vision needs: No Questionnaire PHQ-9 Over the last 2 weeks, how often have you been bothered by any of the following problems? 1. Little interest or pleasure in doing things: not at all 2. Feeling down, depressed, or hopeless: not at all 3. Trouble falling or staying asleep, or sleeping too much: not at all 4. Feeling tired or having little energy: not at all 5. Poor appetite or overeating: not at all 6. Feeling bad about yourself - or that you are a failure or have let yourself or your family down: not at all 7. Trouble concentrating on things, such as reading the newspaper or watching television: not at all 8. Moving or speaking so slowly that other people could have noticed. Or the opposite - being so fidgety or restless that you have been moving around a lot more than usual: not at all 9. Thoughts that you would be better off or of hurting yourself in some way: not at all Total score: 0 Depression Screening Interpretation: Negative Depression Screening Done: Yes 74202 - PHQ-9 Billing: Yes Source: Developed by Drs. Manfred Hester, Kiesha Murray, Galileo Boyd and colleagues, with an educational katelyn from [employer] Thrive Questionnaire Date Thrive assessed: 02/28/23 I am a: Patient What is your living situation today?: I have a steady place to live Within the past 12 months, did the food you bought not last and you didn't have the money to get more?: Never true Within the past 12 months, did you worry whether your food would run out before you got money to buy more?: Never true Do you have trouble paying for medicines?: No Do you have trouble getting transportation to medical appointments?: No Do you have trouble paying your heating and electricity bill?: No Do you have trouble taking care of your child, family member or friend?: No Do you have trouble with day-to-day activities such as bathing, preparing meals, shopping, managing finances, etc.?: No Are you currently unemployed and looking for a job?: No Are you interested in more education?: No Please select the resources that you would like help with: None Currently or been in a relationship where the following occur: no concerns reported AUDIT C Alcohol Use Questionnaire (AUDIT-C) 1. How often do you have a drink containing alcohol?: Monthly or less 2. How many drinks containing alcohol do you have on a typical day when you are drinking?: 1 or 2 3. How often do you have six or more drinks on one occasion?: Never Total Score: 1 RODOLFO-7 AMB Questionnaire RODOLFO-7 Date RODOLFO - 7 assessed: 02/28/23 Feeling nervous, anxious, or on edge: 2 = More than half the days Not being able to stop or control worryin = Several days Worrying too much about different things: 3 = Nearly every day Trouble relaxin = Nearly every day Being so restless that it is hard to sit still: 1 = Several days Becoming easily annoyed or irritable: 3 = Nearly every day Feeling afraid as if something awful might happen: 0 = Not at all Total RODOLFO-7 score (0-4 normal; 5-9 mild; 10-14 moderate; 15-21 severe): 13 Source: Developed by Drs. Manfred Hester, Kiesha Murray, Galileo Boyd and colleagues, with an educational katelyn from [employer] RODOLFO-7 Assessment Billing RODOLFO-7 Assessment Tool: RODOLFO-7 Assessment 58638 Review of Systems Const All systems reviewed & are unremarkable except as noted in HPI and below Eyes Reports no additional complaints, Denies change in vision and Denies other visual disturbances Card Denies chest pain at rest, Denies chest pain with activity, Denies edema, Denies irregular heart rhythm, Denies claudication, Denies dyspnea, Denies dyspnea on exertion, Denies orthopnea, Denies paroxysmal nocturnal dyspnea and Denies slow heart rate Resp Denies cough, Denies dyspnea and Denies dyspnea on exertion GI Denies abdominal pain, Denies change in bowel habits, Denies excessive flatus, Denies nausea and Denies vomiting Denies urinary incontinence, Denies urinary hesitancy and Denies urinary urgency Musc Denies abnormal gait, Denies atrophy, Denies deformity and Denies limited range of motion Skin/Breast Denies bleeding lesions, Denies changing lesions and Denies rash Neuro Denies abnormal gait, Denies behavioral changes, Denies confusion and Denies lack of coordination Psych Denies behavioral changes and Denies confusion Physical exam (Primary Care) Vital Signs: Last Vital Signs BP 110/78 02/28/23 15:06 BMI result Body Mass Index 58.9 Tobacco/Smoking Status: Tobacco use Status Tobacco use date assessed 02/28/23 02/28/23 15:18 Patient Tobacco Use Status Current everyday Tobacco 02/28/23 15:18 Tobacco use type Cigarette 02/28/23 15:18 e-Cigarette/Vaping Use Never Used 02/28/23 15:18 PHQ-9: PHQ-9 Score PHQ-9: Total score 0 02/28/23 15:44 Depression Screening Interpretation: Negative Thrive Assessment: Date of Thrive Assessment Date Thrive assessed 02/28/23 02/28/23 15:18 Currently or been in a relationship where the following occur: no concerns reported Const General: No confusion Orientation/consciousness: patient oriented x3 and No confusion HENMT Head: Yes normal to inspection, Yes normocephalic and Yes atraumatic Ears: external ears normal Eyes General: appearance normal, both eyes and all related structures Eyelids: Yes eyelids normal Conjunctivae: conjunctivae normal Neck Neck: Yes normal visual inspection and Yes supple Resp Effort & Inspection: normal respiratory effort Auscultation: clear to auscultation bilaterally Cardio Jugular venous distension: no JVD Rate: regular rate Rhythm: regular rhythm Heart sounds: S1 normal heart sound present and S2 normal heart sound present GI Inspection: Yes normal to inspection Palpation (GI): Soft to palpation and nontender Auscultation: normal bowel sounds Skin General skin exam: no rashes or lesions noted Neuro General: patient oriented x3, no focal motor deficits and No confusion Extrem General: Yes full ROM Psych Appearance: grossly normal Office Procedures Flu Questionnaire Does the patient have a severe egg allergy?: No Immunizations flu vacc [id number] 6mos up(PF) 60 mcg(15 mcgx4)/0.5 mL IM syringe Performing Provider: Leticia Linares MD Performing Location: [facility] Documented (not given) by: GASPER Eaton on 02/28/23 15:44 Reason Not Given: Not Given Assessment and Plan Assessment & Plan (1) Physical exam: Code(s): Z00.00 - Encounter for general adult medical examination without abnormal findings Plan: Repeat in a year. (2) Mild recurrent major depression: Code(s): F33.0 - Major depressive disorder, recurrent, mild Plan: Continue bupropion. (3) Morbid obesity due to excess calories: Code(s): E66.01 - Morbid (severe) obesity due to excess calories Plan: Start diet and exercise. Declines weight loss surgery for now. BMI goal is less than 30. Orders: Orders Vitamin D 25-OH Total 02/28/23 E55.9 - Vitamin D deficiency, unspecified Thyroid Stimulating Hormone 02/28/23 E66.01 - Morbid (severe) obesity due to excess calories Influenza [id number] Immunization 02/28/23 Z23 - Encounter for immunization Comprehensive Rembrandt. Panel Fast 02/28/23 Z00.00 - Encounter for general adult medical examination without abnormal findings Lipid Panel 02/28/23 Z00.00 - Encounter for general adult medical examination without abnormal findings Medications: New semaglutide (weight loss) (Wegovy) administer weeks 1 through 4 of therapy 0.25 mg (0.5 mL) subcut QWEEK 2 mL 6RF 28 days E66.01 - Morbid (severe) obesity due to excess calories Coding Level of Care Code Est Pt Prev Care [id number]([id number]) Diagnoses Physical exam Z00.00 Mild recurrent major depression F33.0 Morbid obesity due to excess calories E66.01 Additional Codes RODOLFO-7 Assessment Billing - RODOLFO-7 Assessment Tool: RODOLFO-7 Assessment 78505 ([id number]) Time Spent (min) 32
== END 2023-02-28 15:46 | disposition home or self-care (01) ==
PROVIDERS: PCP Internal Medicine; Visit Provider Internal Medicine
DX: Z00.00 Encounter for general adult medical examination without abnormal findings (principal); F33.0 Major depressive disorder, recurrent, mild; E66.01 Morbid (severe) obesity due to excess calories; Z68.43 Body mass index [BMI] 50.0-59.9, adult
CPT/HCPCS: 99395

== ENCOUNTER 2023-03-19 09:49 | Outpatient (AMB) | payer OTHER, SELFPAY ==
--- NOTE | 2023-03-19 10:26 | AM.OFFVISNUR ---
Intake Intake Visit Reasons: Flu shot Allergies No Known Allergies [No Known Allergies*] Allergy (Verified 02/28/23 15:30) Office Procedures Flu Questionnaire Does the patient have a severe egg allergy?: No Does the patient have severe life threatening allergies?: No Does the patient have a fever or illness today?: No Has the patient ever had Guillain-Marion Syndrome?: No Has the patient ever had any past reaction to a flu shot?: No Immunizations flu vacc [id number] 6mos up(PF) 60 mcg(15 mcgx4)/0.5 mL IM syringe Performing Provider: Leticia Linares MD Per[facility] Administered by: Susan Musa RN on 03/19/23 10:26 Dose Route Admin Location Dispensed Lot Number Expiration Date 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
== END 2023-03-19 10:30 | disposition home or self-care (01) ==
PROVIDERS: PCP Internal Medicine; Visit Provider Internal Medicine
DX: Z23 Encounter for immunization (principal)
CPT/HCPCS: 90471; 90686

== ENCOUNTER 2023-06-11 09:11 | Outpatient (AMB) | payer OTHER, SELFPAY ==
--- NOTE | 2023-06-11 09:15 | MHC.PC.OV ---
Vital Signs 06/11/23 09:22 Height 5 ft 4 in Weight 338 lb BMI 58.0 BP 118/80 Blood Pressure Location Lt brachial Position Sitting Intake Visit Reasons: breast pain Intake Note: Patient here for painful lump on left breast Larry Operator Required: No Accompanied by: Self / Same As Patient Allergies No Known Allergies [No Known Allergies*] Allergy (Verified 06/11/23 09:33) Medication List - Last Reconciled 06/11/23 by Leticia Linares MD albuterol sulfate 90 mcg/actuation 2 puffs inhalation Q4-6H PRN bupropion HCl 300 mg PO QAM 90 days cholecalciferol (vitamin D3) 25 mcg PO DAILY 90 days semaglutide (weight loss) (Wegovy) 0.25 mg (0.5 mL) subcut QWEEK 28 days simethicone (Gas Relief (simethicone)) 180 mg PO BID PRN 7 days Tobacco use date assessed: 06/11/23 Dental Screening Dental Screen Date: 06/11/23 Did you have a dental visit in the last 12 months?: No Did you have a dental problem in the last 6 months where you did not have access to dental care?: No Was dental information given to patient?: Patient has dentist HPI HPI Comments History of Present Illness Details This is a 33-year-old female with mild recurrent major depression and morbid obesity that comes today complaining of left breast painful mass 10:00 o'clock that she noticed about 3-4 weeks ago with nipple retraction. There is some redness in the area and I will prescribe an antibiotic and order a diagnostic mammogram and ultrasound of the breast. Depression stable with bupropion. She is morbidly obese with a BMI of 58 and was approved Wegovy but has not been able to find it in any pharmacy. She also has abnormal menses in which she has menses for 6 months straight and then 3 months without it. [facility] Medical History (Updated 06/11/23 @ 09:47 by Leticia Linares MD) Asthma Surgical History Hx of tonsillectomy Family History Maternal Aunt Breast cancer Mother Diabetes Fibromyalgia Maternal Grandmother Breast cancer Father End-stage renal disease on hemodialysis Diabetes Father No problems noted. Family/Other Mental health disorder Brother No problems noted. Social History Household Members: Spouse and Children Housing: Apartment Alcohol intake: current Alcohol intake frequency: holidays/special occasions only Alcohol type: beer Patient Tobacco Use Status: Current everyday Tobacco user Tobacco use type: Cigarette Cigarettes Per Day: 5 e-Cigarette/Vaping Use: Never Used Second Hand Smoke Exposure: No service: No Current occupational status: employed Current occupational exposures/hazards: No Cognitive needs: No Hearing needs: No Vision needs: No Questionnaire PHQ-9 Over the last 2 weeks, how often have you been bothered by any of the following problems? 1. Little interest or pleasure in doing things: not at all 2. Feeling down, depressed, or hopeless: not at all 3. Trouble falling or staying asleep, or sleeping too much: not at all 4. Feeling tired or having little energy: not at all 5. Poor appetite or overeating: not at all 6. Feeling bad about yourself - or that you are a failure or have let yourself or your family down: not at all 7. Trouble concentrating on things, such as reading the newspaper or watching television: not at all 8. Moving or speaking so slowly that other people could have noticed. Or the opposite - being so fidgety or restless that you have been moving around a lot more than usual: not at all 9. Thoughts that you would be better off or of hurting yourself in some way: not at all Total score: 0 Depression Screening Interpretation: Negative Depression Screening Done: Yes 89899 - PHQ-9 Billing: Yes Source: Developed by Drs. Manfred Hester, Kiesha Murray, Galileo Boyd and colleagues, with an educational katelyn from [employer]. Thrive Questionnaire Date Thrive assessed: 06/11/23 I am a: Patient What is your living situation today?: I have a steady place to live Within the past 12 months, did the food you bought not last and you didn't have the money to get more?: Never true Within the past 12 months, did you worry whether your food would run out before you got money to buy more?: Never true Do you have trouble paying for medicines?: No Do you have trouble getting transportation to medical appointments?: No Do you have trouble paying your heating and electricity bill?: No Do you have trouble taking care of your child, family member or friend?: No Do you have trouble with day-to-day activities such as bathing, preparing meals, shopping, managing finances, etc.?: No Are you currently unemployed and looking for a job?: No Are you interested in more education?: No Please select the resources that you would like help with: None Currently or been in a relationship where the following occur: no concerns reported THRIVE Score: 0 AUDIT C Alcohol Use Questionnaire (AUDIT-C) 1. How often do you have a drink containing alcohol?: Monthly or less 2. How many drinks containing alcohol do you have on a typical day when you are drinking?: 1 or 2 3. How often do you have six or more drinks on one occasion?: Never Total Score: 1 RODOLFO-7 AMB Questionnaire RODOLFO-7 Date RODOLFO - 7 assessed: 06/11/23 Feeling nervous, anxious, or on edge: 1 = Several days Not being able to stop or control worryin = Not at all Worrying too much about different things: 1 = Several days Trouble relaxin = Not at all Being so restless that it is hard to sit still: 1 = Several days Becoming easily annoyed or irritable: 1 = Several days Feeling afraid as if something awful might happen: 0 = Not at all Total RODOLFO-7 score (0-4 normal; 5-9 mild; 10-14 moderate; 15-21 severe): 4 Source: Developed by Drs. Manfred Hester, Kiesha Murray, Galileo Boyd and colleagues, with an educational katelyn from [employer]. RODOLFO-7 Assessment Billing RODOLFO-7 Assessment Tool: RODOLFO-7 Assessment 80035 Review of Systems Const All systems reviewed & are unremarkable except as noted in HPI and below Eyes Reports no additional complaints, Denies change in vision and Denies other visual disturbances Card Denies chest pain at rest, Denies chest pain with activity, Denies edema, Denies irregular heart rhythm, Denies claudication, Denies dyspnea, Denies dyspnea on exertion, Denies orthopnea, Denies paroxysmal nocturnal dyspnea and Denies slow heart rate Resp Denies cough, Denies dyspnea and Denies dyspnea on exertion GI Denies abdominal pain, Denies change in bowel habits, Denies excessive flatus, Denies nausea and Denies vomiting Denies urinary incontinence, Denies urinary hesitancy and Denies urinary urgency Musc Denies abnormal gait, Denies atrophy, Denies deformity and Denies limited range of motion Skin/Breast Denies bleeding lesions, Reports breast pain, Reports breast mass, Denies changing lesions, Reports erythema and Denies rash Neuro Denies abnormal gait and Denies lack of coordination Physical exam (Primary Care) Vital Signs: Last Vital Signs BP 118/80 06/11/23 09:22 BMI result Body Mass Index 58.0 Tobacco/Smoking Status: Tobacco use Status Tobacco use date assessed 06/11/23 06/11/23 09:28 Patient Tobacco Use Status Current everyday Tobacco 06/11/23 09:26 Tobacco use type Cigarette 06/11/23 09:26 e-Cigarette/Vaping Use Never Used 06/11/23 09:26 PHQ-9: PHQ-9 Score PHQ-9: Total score 0 06/11/23 09:41 Depression Screening Interpretation: Negative Thrive Assessment: Date of Thrive Assessment Date Thrive assessed 06/11/23 06/11/23 09:28 Currently or been in a relationship where the following occur: no concerns reported Chest Breast/axilla inspection: abnormal inspection of the breast (tender mass at 10 o'clock) left erythema and retraction skin dimpling Resp Effort & Inspection: normal respiratory effort Auscultation: clear to auscultation bilaterally Cardio Jugular venous distension: no JVD Rate: regular rate Rhythm: regular rhythm Heart sounds: S1 normal heart sound present and S2 normal heart sound present Extrem General: Yes full ROM Psych Appearance: grossly normal Assessment and Plan Assessment & Plan (1) Mild recurrent major depression: Code(s): F33.0 - Major depressive disorder, recurrent, mild Plan: Continue bupropion. (2) Morbid obesity due to excess calories: Code(s): E66.01 - Morbid (severe) obesity due to excess calories Plan: Start Wegovy. BMI goal is less than 30. (3) Lump of left breast: Comment: at 10 o'clock Code(s): N63.20 - Unspecified lump in the left breast, unspecified quadrant Plan: Diagnostic mammogram and ultrasound of the breast ordered. (4) Abnormal menses: Code(s): N92.6 - Irregular menstruation, unspecified Plan: CBC ordered. Referred to OBGYN. Orders: Orders US breast LT complete Today N63.20 - Unspecified lump in the left breast, unspecified quadrant Complete Blood Count Auto Diff Today N92.6 - Irregular menstruation, unspecified IRON PROFILE Today N92.6 - Irregular menstruation, unspecified MM diagnostic mammo BI Today N63.20 - Unspecified lump in the left breast, unspecified quadrant Referrals SENIOR INVESTIGATOR Referral N92.6 - Irregular menstruation, unspecified Coding Level of Care Code Est Pt Level 4 (39499) Diagnoses Mild recurrent major depression F33.0 Morbid obesity due to excess calories E66.01 Lump of left breast N63.20 Abnormal menses N92.6 Additional Codes RODOLFO-7 Assessment Billing - RODOLFO-7 Assessment Tool: RODOLFO-7 Assessment 53922 ([id number]) Time Spent (min) 24
[2023-06-11 09:22] VITALS: BP 118/80; BMI 58.0
== END 2023-06-11 09:53 | disposition home or self-care (01) ==
PROVIDERS: PCP Internal Medicine; Visit Provider Internal Medicine
DX: N63.21 Unspecified lump in the left breast, upper outer quadrant (principal); F33.0 Major depressive disorder, recurrent, mild; N92.6 Irregular menstruation, unspecified
CPT/HCPCS: 99214

== ENCOUNTER 2023-06-13 11:04 | Outpatient (REF) | payer OTHER, SELFPAY ==
--- NOTE | ~2023-06-13 | MM_ITS ---
EXAMINATION: MM DIAGNOSTIC DIGITAL BREAST TOMOSYNTHESIS, LEFT US BREAST LIMITED, LEFT CLINICAL INFORMATION: 33-year-old female complaining of palpable abnormality left breast 10:00 axis. History of left breast mastitis in the region of the the nipple. COMPARISON: Mammography: 01/06/2021 mammography; left breast ultrasound 03/16/2021, 01/06/2021, and 12/29/2020. TECHNIQUE: Digital left breast tomosynthesis is performed in the following views: Full-field left 3-D CC x2, full-field 3-D left MLO, full-field 3-D left ML, and spot compression 3-D views in the left MLO and CC projections. FINDINGS: There are scattered areas of fibroglandular density (ACR BI-RADS breast composition Category b). Area of palpable concern was marked by the technologist with a BB marker at the 10:00 axis left breast, anterior one third. No suspicious masses, areas of architectural distortion, or grouped suspicious calcifications are identified in the left breast, or near the 10:00 palpable marker. There are no skin or axillary abnormalities. There is mild nipple retraction on the left, as well as mild thickening of the areola, which has been present since the prior bouts of mastitis, however may be slightly worse. This is likely secondary to scarring and/or reinfection. We will interrogate this area with ultrasound. ULTRASOUND: CLINICAL INFORMATION: Evaluate palpable focus of concern 10:00 axis left breast. Evaluate right retroareolar region. COMPARISON: None contributory. TECHNIQUE: Targeted sonographic evaluation was performed using a high frequency linear transducer. Attention was focused to the 10:00 axis in the region marked by the technologist with the aid of the patient. Selected archived documentation. FINDINGS: LEFT BREAST: In the retroareolar region of the left breast is nipple inversion with shadowing, as well as a sizable area of marked irregular hypoechoic tissue with surrounding hyperechoic fat and internal hyperechoic specular debris, findings most consistent with regions of fat necrosis. These appear to extend medially into the palpable region at 11:00, where there is edema within the fat which may indicate tracking infection although there is very little color Doppler flow to this region. There is a small amount of fluid subjacent to the periareolar skin, in keeping with active infection. The retroareolar region is hyperemic on color Doppler signal as well. Overall, findings are highly suggestive of recurrent and/or smoldering infectious mastitis affecting the nipple region predominantly. No drainable abscess or fluid collection is seen. MM/MM tomosynthesis diagnostic LT IMPRESSION: 1. Findings and there are retroareolar region which are highly suggestive of scarring and fat necrosis, likely from chronic or smoldering mastitis. There is likely be superimposed mastitis as detailed above at this time. No drainable abscess or fluid collection. 2. Palpable focus at 10:00, 6 cm from the nipple, appears to be edematous fatty tissue tracking from the nipple region, likely fat edema/infection or developing fat necrosis. 3. There are no findings suspicious for malignancy in the left breast. 4. Given these findings, recommend continued clinical management and completion of the focal course antibiotic therapy, with rescanning as necessary if an abscess is suspected. Findings and recommendations were discussed with the patient in detail by the radiologist. OVERALL ASSESSMENT: Mammography: BI-RADS 2 - Benign Findings Ultrasound: BI-RADS 2 - Benign Findings RECOMMENDATION: 1. Patient should be managed based on the clinical impression.
== END 2023-06-13 11:05 | disposition home or self-care (01) ==
LOC: HO.MAMMO 11:04
PROVIDERS: PCP Internal Medicine; Visit Provider Internal Medicine
DX: N63.22 Unspecified lump in the left breast, upper inner quadrant (principal)
CPT/HCPCS: 76642; 77061; 77065

== ENCOUNTER → 2023-06-13 11:30 | Outpatient (BNV) | payer OTHER, SELFPAY | PROVIDERS: PCP Internal Medicine; Visit Provider Radiology Diagnostic Radiology | DX: N63.22 Unspecified lump in the left breast, upper inner quadrant (principal) | CPT/HCPCS: 76642; 77061; 77065 ==

== ENCOUNTER → 2023-07-23 14:39 | Outpatient (BNVA) | payer OTHER, SELFPAY | PROVIDERS: PCP Internal Medicine; Visit Provider Advanced Practice Midwife ==

== ENCOUNTER 2023-08-08 11:02 | Outpatient (AMB) | payer OTHER, SELFPAY ==
[2023-08-08 11:05] VITALS: BP 110/68; BMI 58.0
--- NOTE | 2023-08-08 11:05 | MHC.OFFVIS ---
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 Information Interpreted: clinical only Commodity Industry Analyst: Commodity Industry Analyst Present Allergies No Known Allergies [No Known Allergies*] Allergy (Verified 08/08/23 11:06) Medication List - Last Reconciled 08/08/23 by Tisha Pichardo CNM albuterol sulfate 90 mcg/actuation 2 puffs inhalation Q4-6H PRN bupropion HCl XL 300 mg PO QAM 90 days cholecalciferol (vitamin D3) 25 mcg PO DAILY 90 days simethicone (Gas Relief (simethicone)) 180 mg PO BID PRN 7 days Is last menstrual period known: Yes Last menstrual period: 07/25/23 Do you need a note to return to daycare/school/sports/work: No HPI HPI New Patient Irregular menses: 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 She used to go to [facility]. She says she has never had an abnormal Pap smear she is overweight she says she has always been overweight she said she was given a prescription for Wegovy but she tried everywhere and could not get it so she gave up on that and she is trying to just lose the weight on room she said she lost a lot a weight in preparation for surgery years ago but then she gained triple back. For now she is eating essentially ?nothing? she has nutrition books and she knows what to do and she says she basically eating chicken and salad and fish. Her is diabetic and he is trying to eat healthy to and so they were all trying to follow the same guidelines in addition her [id number] lost a whole lot a weight also trying to eat very healthy and they were all helping each other. She says she has always had irregular periods ever since she gained a lot a weight when she was about 19. She had a baby 9 years ago at [facility] and she says she did not have any complications she was overweight then says everything was fine the baby. If she got she would have the baby she has not trying to get and is not planning on it. She says she has very crazy irregular periods in her heavy and she has to spend a lot of money on tampons and pads. She had Depo in the past and she had pills and she had the Mirena IUD after she gave they put it in right in Hospital and she bled for 40 days which she saw as normal and then she had no periods for 5 years she had it taken out then and she has no interest in having had again she did not think it was normal to not get her. At all but she also does not like bleeding for 6 months and not bleeding for another 3 months which is what she told Dr. Mcclure at the last visit. She says it can come when it wants and is lasts a long time. She feels weak when she gets it but she has no interest in any of the control methods nor repeating the Mirena anymore she wonders why her uterus can not just be taken out. In terms of risk of I did share that if she did get would be a high-risk because of her weight. She says the she has not worried about that because her can not ejaculate has a diabetes. Discussed that because both of them are endeavoring to lose weight and get healthier that sometimes things happen unexpectedly,and to be careful. [facility] Medical History Asthma Surgical History Hx of tonsillectomy Family History Maternal Aunt Breast cancer Mother Diabetes Fibromyalgia Maternal Grandmother Breast cancer Father End-stage renal disease on hemodialysis Diabetes Father No problems noted. Family/Other Mental health disorder Brother No problems noted. Social History Household Members: Spouse and Children Housing: Apartment Alcohol intake: current Alcohol intake frequency: holidays/special occasions only Alcohol type: beer Patient Tobacco Use Status: Current everyday Tobacco user Tobacco use type: Cigarette Cigarettes Per Day: 5 e-Cigarette/Vaping Use: Never Used Second Hand Smoke Exposure: No service: No Current occupational status: employed Current occupational exposures/hazards: No Cognitive needs: No Hearing needs: No Vision needs: No Female Reproductive History Menstrual Age of Menarche: 10 Duration of menses: <3 days Date of last menstrual period: 07/25/23 control method: none Total pregnancies: 1 Full term: 1 History of abnormal pap smear: No (previous pap negative ,per patient ,unsure date.) Physical Exam Vital Signs: Last Vital Signs BP 110/68 08/08/23 11:05 BMI result Body Mass Index 58.0 Const General: healthy appearing, comfortable, no acute distress, well developed and alert Nutritional Appearance: average body habitus Orientation/consciousness: patient oriented x3 Limitations: no limitations HEENT Head: Yes normocephalic Neck Neck: Yes normal visual inspection Chest Chest palpation & inspection: normal inspection of the chest Breast/axilla inspection: normal inspection of the breasts, normal inspection of the axillae and Other (Her left nipple is inverted there no signs of infection currently patient ) Breast/axilla palpation: normal palpation of the breasts and normal palpation of the axillae Resp Effort & Inspection: normal respiratory effort GI Inspection: Yes normal to inspection, No Abdominal wall edema and No distended Palpation (GI): Soft to palpation and nontender General: Yes bladder normal to palpation External Female Exam: normal external appearance and normal appearance of the urethra Speculum Exam - Vagina: normal appearance of the vagina, normal palpation and normal vaginal discharge Speculum Exam - Cervix: normal appearance of the cervix, normal palpation and nontender Bimanual exam- vagina & uterus: normal bimanual exam, normal palpation, uterine size normal, bladder normal to palpation, consistency normal, normal palpation, uterine mobility normal, uterine shape normal, No Cervical tenderness present, non-tender, no cervical motion tenderness and other (Detail of exam somewhat limited by patient's adipose.) Bimanual Exam- Adnexa, other: normal adnexae, no masses, normal and No adnexal tenderness Neuro General: patient oriented x3 Assessment & Plan Assessment & Plan (1) Morbid obesity due to excess calories: Code(s): E66.01 - Morbid (severe) obesity due to excess calories Category: Medical (2) Abnormal menses: Code(s): N92.6 - Irregular menstruation, unspecified Category: Medical (3) Women's annual routine gynecological examination: Code(s): Z01.419 - Encounter for gynecological examination (general) (routine) without abnormal findings Category: Medical (4) Cervical cancer screening: Code(s): Z12.4 - Encounter for screening for malignant neoplasm of cervix Category: Medical Plan -----Discussed in this visit the following: healthy balanced diet, regular and consistent exercise, getting recommended health screens, doing the best she can for her particular health concerns, kegel exercises, pap smear screening and followup recommendations, mammography screening and SBE, normal changes in cycles in her life stage--- .Discussed her pattern of abnormal bleeding and the usual evaluation for it. Discussed the importance of ruling out any abnormal cells in her endometrium that are contributing to this. Discussed the ways of evaluating it, including pelvic ultrasound if appropriate, and an endometrial biopsy if appropriate. Also discussed the common causes of abnormal bleeding, including cancerous or precancerous cells, endometrial hyperplasia, anovulatory cycles, fibroids, and other potential causes. Discussed evaluation methods including endometrial biopsy to check the cells in the endometrial cavity, pelvic ultrasound to rule out any other abnormalities including fibroids, and any lab work if appropriate. Also discussed possible treatment to deal with the abnormal bleeding which may include medications, depending on age and other factors, that include control pills and Mirena IUDs. In certain cases there may be other treatment plans discussed as well. She has not interested in the Mirena or any control method whatsoever discussed the long-term challenges of her bleeding pattern as above and the risks she is open to starting was an ultrasound for evaluation I did look and see when she last had blood work she thought she had had labs done February but last labs that I see system were from 2021. It appears that her primary care provider has ordered fasting blood work to check for many things as well as thyroid and anemia and her blood sugar. I shared this with the patient and recommend she try and go and get those labs done soon fasting. In addition we will do the pelvic ultrasound and have a visit after to review at all. I did recommend that she consider a Mirena IUD to at least help control the irregular bleeding pattern but an endometrial biopsy would probably be indicated 1st. I shared that usually dramatic intervention such as surgery are not offered until less dramatic measures can be tried and attempted to deal with the problem 1st. RTC after labs and ultrasound for further discussion. Mostly I applauded her efforts at weight loss and her family team approach and I am glad that they are trying to support 1 another that helps to and currently what she describes to me as what she is eating sounds like healthy approach discussed the challenges of losing weight. She thinks she gained a lot of weight because she was not eating much except for fast food before. Orders: Orders Pap Smear Today Z01.419 - Encounter for gynecological examination (general) (routine) without abnormal findings CT NG by PCR Today Z11.3 - Encounter for screening for infections with a predominantly sexual mode of transmission Bacterial Vaginosis Panel Today Z11.3 - Encounter for screening for infections with a predominantly sexual mode of transmission US pelvic and transvaginal Today E66.01 - Morbid (severe) obesity due to excess calories, N92.6 - Irregular menstruation, unspecified, Z01.419 - Encounter for gynecological examination (general) (routine) without abnormal findings, Z12.4 - Encounter for screening for malignant neoplasm of cervix Coding Level of Care Code New Pt Prev Care [id number] Diagnoses Morbid obesity due to excess calories E66.01 Abnormal menses N92.6 Women's annual routine gynecological examination Z01.419 Cervical cancer screening Z12.4
== END 2023-08-08 11:55 | disposition home or self-care (01) ==
PROVIDERS: PCP Internal Medicine; Visit Provider Advanced Practice Midwife
DX: Z01.419 Encounter for gynecological examination (general) (routine) without abnormal findings (principal); N92.6 Irregular menstruation, unspecified; E66.01 Morbid (severe) obesity due to excess calories
CPT/HCPCS: 99385

== ENCOUNTER 2023-08-08 11:02 | Outpatient (REF) | payer OTHER, SELFPAY ==
[2023-08-08 15:17] LABS: Bacterial Vaginosis PCR NEGATIVE (Negative); Candida Group PCR NOT DETECTED (Not Detect); Candida glab krusei PCR NOT DETECTED (Not Detect); Trichomonas vaginalis PCR NOT DETECTED (Not Detect)
[2023-08-08 15:55] LABS: CT PCR NOT DETECTED (Not Detect.); NG PCR NOT DETECTED (Not Detect.)
[2023-08-15 01:39] LABS: HPV mRNA E6/E7 rflx Not Detected (Not Detected)
== END 2023-08-08 11:03 | disposition home or self-care (01) ==
LOC: HO.LAB 11:02
PROVIDERS: PCP Internal Medicine; Visit Provider Advanced Practice Midwife
DX: Z01.419 Encounter for gynecological examination (general) (routine) without abnormal findings (principal); E66.01 Morbid (severe) obesity due to excess calories; N92.6 Irregular menstruation, unspecified; Z11.3 Encounter for screening for infections with a predominantly sexual mode of transmission
CPT/HCPCS: 0352U; 0353U; 87624; 88142; 99385

== ENCOUNTER 2023-08-20 10:58 | Outpatient (REF) | payer OTHER, SELFPAY ==
--- NOTE | ~2023-08-20 | US_ITS ---
EXAMINATION: US PELVIS CLINICAL INFORMATION: Irregular menstruation, last menstrual period 2 months ago. COMPARISON: None available. TECHNIQUE: Ultrasound of the pelvis is performed using both transabdominal and transvaginal transducers along with Doppler. Transvaginal imaging is performed due to inadequate visualization transabdominally. FINDINGS: The uterus measures 8.6 x 3.9 x 3.3 cm and is anteverted. No discrete fibroids are appreciated. Endometrial thickness is 3.5 mm. Limited visualization particularly of the uterine fundus and fundal aspect of the endometrium due to bowel gas and body habitus. Right ovary measures 3.6 x 2.1 x 2.4 cm, volume 9.5 mL. Right ovary is grossly unremarkable and transabdominal ultrasound images and poorly visualized on transvaginal ultrasound images. Left ovary measures 2.3 x 2.4 x 2.5 cm, volume 7.2 mL and is grossly unremarkable on limited transabdominal ultrasound images and poorly visualized on transabdominal ultrasound images. No significant free fluid. US/US pelvic and transvaginal IMPRESSION: Endometrial thickness is 3.5 mm. Limited visualization particularly of the uterine fundus and fundal aspect of the endometrium due to bowel gas and body habitus. Bilateral ovaries are grossly unremarkable; however, visualization limited as detailed above.
[2023-08-20 11:16] LABS: MANUAL DIFF FLAG NO
[2023-08-20 12:02] LABS: Basophils Percent Auto 0.2 % (0-2); Eosinophils Absolute Auto 0.3 X10*3/uL (0.0-0.4); Eosinophils Percent Auto 2.8 % (0-4); Hematocrit 43.2 % (37.0-47.0); Hemoglobin 13.9 g/dl (12.0-16.0); Imm Gran Abs Auto 0.04 X10*3/uL (0.00-0.03); Imm Gran Pct Auto 0.4 % (0.0-0.4); Lymphocytes Percent Auto 38.9 % (20-40); Mean Corpuscular HGB Conc 32.2 g/dl (31.0-35.0); Mean Corpuscular Hemoglobin 28.7 pg (27.0-33.0); Mean Corpuscular Volume 89.1 fL (80.0-98.0); Mean Platelet Volume 9.9 fL (9.4-12.3); Monocytes Absolute Auto 0.6 X10*3/uL (0.1-1.2); Monocytes Percent Auto 5.7 % (2-11); Neutrophils Absolute Auto 5.3 x10*3/uL (2.0-8.3); Platelet Count 360 X10*3/uL (160-400); Red Blood Count 4.85 X10*6/uL (4.20-5.50); White Blood Count 10.2 X10*3/uL (4.8-10.8)
[2023-08-20 12:57] LABS: Alanine Aminotransferase 23 U/L (0-31); Albumin Level 3.8 g/dL (3.5-5.0); Alkaline Phosphatase 79 U/L (39-117); Anion Gap 10 (12-20); Aspartate Amino Transferase 17 U/L (5-31); Bilirubin Total 0.2 mg/dL (0.0-1.0); Blood Urea Nitrogen 9 mg/dL (9-16); Calcium 8.8 mg/dL (8.4-10.2); Carbon Dioxide 28 mmol/L (22-29); Chloride 106 mmol/L (96-108); Cholesterol 166 mg/dL (<200); Estimated Glomerular Filt Rate > 60; Glucose Fasting 94 mg/dL (60-99); HDL Cholesterol 46 mg/dL (>40); Iron 49 mcg/dL (30-160); LDL Cholesterol Calculated 107 mg/dL (<100); Percent Iron Saturation 16 % (15-50); Potassium 4.6 mmol/L (3.3-5.1); Sodium 139 mmol/L (135-145); Total Iron Binding Capacity 313 mcg/dL (228-428); Total Protein 6.6 g/dL (6.5-8.0); Triglycerides 66 mg/dL (<150); Unsaturated Iron Binding 264 ug/dL
[2023-08-20 13:20] LABS: Thyroid Stimulating Hormone 1.72 uIU/mL (0.32-4.0); Vitamin D 25-OH Total 16.2 ng/mL (>30)
== END 2023-08-20 10:59 | disposition home or self-care (01) ==
LOC: HO.US 10:58
PROVIDERS: Absent Provider Internal Medicine; PCP Internal Medicine; Visit Provider Advanced Practice Midwife
DX: N92.6 Irregular menstruation, unspecified (principal); E55.9 Vitamin D deficiency, unspecified; E66.01 Morbid (severe) obesity due to excess calories; Z00.00 Encounter for general adult medical examination without abnormal findings
CPT/HCPCS: 36415; 76830; 76856; 80053; 80061; 82306; 83540; 84443; 85025

== ENCOUNTER 2023-09-06 10:18 | Outpatient (AMB) | payer OTHER, SELFPAY ==
--- NOTE | 2023-09-06 10:25 | MHC.OFFWIV ---
Intake Vital Signs 09/06/23 10:26 Height 5 ft 4 in Weight 328 lb BMI 56.3 BP 138/80 Blood Pressure Location Rt brachial Position Sitting Pulse 81 Pulse Source Pulse Oximeter Pulse Oximetry (%) 100 Oxygen Delivery Method Room Air Intake Visit Reasons: EP Lump LT breast Intake Note: Patient here for left breast lump, redness and warm to the touch. Patient Tobacco Use Status: Current everyday Tobacco user Allergies No Known Allergies [No Known Allergies*] Allergy (Verified 09/06/23 10:27) Medication List - Last Reconciled 09/06/23 by Arminda Braun MD albuterol sulfate 90 mcg/actuation (Ventolin HFA) 2 puffs PO Q4-6H PRN 30 days bupropion HCl XL 300 mg PO QAM 90 days cholecalciferol (vitamin D3) 25 mcg PO DAILY 90 days simethicone (Gas Relief (simethicone)) 180 mg PO BID PRN 7 days sulfamethoxazole-trimethoprim 800-160 mg (Bactrim DS) 1 tab PO BID 10 days Do you need a note to return to daycare/school/sports/work: No HPI EP Lump LT breast HPI Details Patient has seen primary care June of this year for similar problem She was given Bactrim antibiotic and also had mammogram and ultrasound ordered Which showed 1. Findings and there are retroareolar region which are highly suggestive of scarring and fat necrosis, likely from chronic or smoldering mastitis. There is likely be superimposed mastitis as detailed above at this time. No drainable abscess or fluid collection. 2. Palpable focus at 10:00, 6 cm from the nipple, appears to be edematous fatty tissue tracking from the nipple region, likely fat edema/infection or developing fat necrosis. 3. There are no findings suspicious for malignancy in the left breast. 4. Given these findings, recommend continued clinical management and completion of the focal course antibiotic therapy, with rescanning as necessary if an abscess is suspected. Patient says that the Bactrim did not help her properly She continued to have the pain which has gotten worse On examination she has induration and erythema close to nipple 9 to 01:00 o'clock With slight bulge just above the nipple with nipple retraction I have placed a referral for patient to see surgeon for possible abscess I have changed antibiotic to Augmentin for 10 days For pain I have sent Percocet 20 tablets Patient is aware of side effects [facility] Medical History Asthma Surgical History Hx of tonsillectomy Family History Maternal Aunt Breast cancer Mother Diabetes Fibromyalgia Maternal Grandmother Breast cancer Father End-stage renal disease on hemodialysis Diabetes Father No problems noted. Family/Other Mental health disorder Brother No problems noted. Social History Household Members: Spouse and Children Housing: Apartment Alcohol intake: current Alcohol intake frequency: holidays/special occasions only Alcohol type: beer Patient Tobacco Use Status: Current everyday Tobacco user Tobacco use type: Cigarette Cigarettes Per Day: 5 e-Cigarette/Vaping Use: Never Used Second Hand Smoke Exposure: No service: No Current occupational status: employed Current occupational exposures/hazards: No Cognitive needs: No Hearing needs: No Vision needs: No Female Reproductive History Menstrual Age of Menarche: 10 Review of Systems Const All systems reviewed & are unremarkable except as noted in HPI and below Physical Exam Const General: no acute distress Orientation/consciousness: patient oriented x3 Eyes General: appearance normal, both eyes and all related structures Chest Chest/axillae images: 1. Induration erythema, slight bulge just above the nipple with nipple retraction tender to pressure Resp Effort & Inspection: normal respiratory effort and able to speak in complete sentences Neuro General: patient oriented x3 Psych Mental Status: mental status grossly normal Assessment & Plan Assessment & Plan (1) Breast abscess: Code(s): N61.1 - Abscess of the breast and nipple Plan Patient has seen primary care June of this year for similar problem She was given Bactrim antibiotic and also had mammogram and ultrasound ordered Which showed 1. Findings and there are retroareolar region which are highly suggestive of scarring and fat necrosis, likely from chronic or smoldering mastitis. There is likely be superimposed mastitis as detailed above at this time. No drainable abscess or fluid collection. 2. Palpable focus at 10:00, 6 cm from the nipple, appears to be edematous fatty tissue tracking from the nipple region, likely fat edema/infection or developing fat necrosis. 3. There are no findings suspicious for malignancy in the left breast. 4. Given these findings, recommend continued clinical management and completion of the focal course antibiotic therapy, with rescanning as necessary if an abscess is suspected. Patient says that the Bactrim did not help her properly She continued to have the pain which has gotten worse On examination she has induration and erythema close to nipple 9 to 01:00 o'clock With slight bulge just above the nipple with nipple retraction I have placed a referral for patient to see surgeon for possible abscess I have changed antibiotic to Augmentin for 10 days For pain I have sent Percocet 20 tablets Patient is aware of side effects Review system: There is no fever chills, no nausea no vomiting, no shortness a breath Orders: Referrals General Surgery Referral N61.1 - Abscess of the breast and nipple Medications: New oxycodone-acetaminophen 5-325 mg (Percocet) Partial Fill upon patient request. Do not drive while taking this medication or work with machines 1 tab PO TID 7 days PRN 20 tabs 0RF pain amoxicillin-pot clavulanate 500-125 mg (Augmentin) 1 tab PO TID 10 days 30 tabs 0RF Coding Level of Care Code Est Pt Level 4 (26882) Diagnoses Breast abscess N61.1
[2023-09-06 10:26] VITALS: BP 138/80; PULSE 81; O2SAT 100; BMI 56.3
== END 2023-09-06 11:01 | disposition home or self-care (01) ==
PROVIDERS: PCP Internal Medicine; Visit Provider Internal Medicine
DX: N61.1 Abscess of the breast and nipple (principal)
CPT/HCPCS: 99214

== ENCOUNTER 2023-09-13 08:54 | Outpatient (AMB) | payer OTHER, SELFPAY ==
[2023-09-13 09:18] VITALS: BMI 54.8
--- NOTE | 2023-09-13 09:18 | A.OFFVIS_ITS ---
Vital Signs 09/13/23 09:18 Height 5 ft 4 in Weight 319 lb BMI 54.8 Intake Visit Reasons: Ultrasound follow up Transportation Lead Required: No Transportation Lead Services: Transportation Lead Present Information Interpreted: clinical only Television Picture Tube Rebuilder: Television Picture Tube Rebuilder Present Allergies No Known Allergies [No Known Allergies*] Allergy (Verified 09/13/23 09:19) Is last menstrual period known: No Do you need a note to return to daycare/school/sports/work: No HPI HPI Ultrasound follow up: Details: Patient is here to discuss her ultrasound and other lab findings done for her heavy irregular periods. [facility] Medical History Asthma Surgical History Hx of tonsillectomy Family History Maternal Aunt Breast cancer Mother Diabetes Fibromyalgia Maternal Grandmother Breast cancer Father End-stage renal disease on hemodialysis Diabetes Father No problems noted. Family/Other Mental health disorder Brother No problems noted. Social History Household Members: Spouse and Children Housing: Apartment Alcohol intake: current Alcohol intake frequency: holidays/special occasions only Alcohol type: beer Patient Tobacco Use Status: Current everyday Tobacco user Tobacco use type: Cigarette Cigarettes Per Day: 5 e-Cigarette/Vaping Use: Never Used Second Hand Smoke Exposure: No service: No Current occupational status: employed Current occupational exposures/hazards: No Cognitive needs: No Hearing needs: No Vision needs: No Female Reproductive History Menstrual Age of Menarche: 10 control method: none Date of Mammogram: 08/09/23 (negative) History of abnormal mammogram: No Physical Exam Vital Signs: BMI result Body Mass Index 54.8 Results Reviewed Results Reviewed: [address] [address] Ultrasound Report Signed Patient: Anthony Stover MR#: [id number] : 1990 Acct:[id number] Age/Sex: 33 / F ADM Date: 08/20/23 Loc: HO. Attending Dr: Tisha Pichardo [facility] Ordering Physician: Tisha Pichardo CNM Date of Service: 08/20/23 Procedure(s): US pelvic and transvaginal Accession Number(s): [id number] cc: Tisha Pichardo CNM; Leticia Richards MD~ EXAMINATION: US PELVIS CLINICAL INFORMATION: Irregular menstruation, last menstrual period 2 months ago. COMPARISON: None available. TECHNIQUE: Ultrasound of the pelvis is performed using both transabdominal and transvaginal transducers along with Doppler. Transvaginal imaging is performed due to inadequate visualization transabdominally. FINDINGS: The uterus measures 8.6 x 3.9 x 3.3 cm and is anteverted. No discrete fibroids are appreciated. Endometrial thickness is 3.5 mm. Limited visualization particularly of the uterine fundus and fundal aspect of the endometrium due to bowel gas and body habitus. Right ovary measures 3.6 x 2.1 x 2.4 cm, volume 9.5 mL. Right ovary is grossly unremarkable and transabdominal ultrasound images and poorly visualized on transvaginal ultrasound images. Left ovary measures 2.3 x 2.4 x 2.5 cm, volume 7.2 mL and is grossly unremarkable on limited transabdominal ultrasound images and poorly visualized on transabdominal ultrasound images. No significant free fluid. US/US pelvic and transvaginal IMPRESSION: Endometrial thickness is 3.5 mm. Limited visualization particularly of the uterine fundus and fundal aspect of the endometrium due to bowel gas and body habitus. Bilateral ovaries are grossly unremarkable; however, visualization limited as detailed above. Dictated By: Bisi Amezquita MD Signed By: <Electronically signed by Bisi Amezquita MD in OV> 09/02/23 1224 DD/ 1135 TD/TT: Pattern Attendant: Also reviewed patient's CBC chemistry labs lipid profile TSH fasting blood sugar, Name: Anthony Stover Age/Sex: 33/F Attending: Tisha Pichardo CNM : 1990 Submitted by: Tisha Pichardo CNM Copies to: Leticia Richards MD MR #: [id number] Status: DEP REF Collected: 08/08/23 Location: .LAB Received: 08/09/23 Interpretation Satisfactory for evaluation. Negative for intraepithelial lesion or malignancy. HPV mRNA E6/E7: NOT DETECTED This assay detects E6/E7 viral messenger RNA (mRNA) from 14 high-risk HPV types (16, 18, 31, 33, 35, 39, 45, 51, 52, 56, 58, 59, 66, 68) HPV testing performed by [employer], [place], [place]. See reference laboratory portion of the EMR for entire report. Clinical Information LMP: 07/25/2023 Previous PAP test: Unknown date/findings Material Received ThinPrep-Cervical Copies To Tisha Pichardo CNM [address] [place] [id number] Leticia Richards MD [address] [place] [id number] Electronically Signed By: Beata Paredes 08/26/23 1713 The Pap Test is a screening procedure with the inherent possibility of both false negative and false positive results. Results should be interpreted in the context of historic and current clinical findings. Reliability of the Pap Test is enhanced by performing the test on a regular repetitive basis. Patient: Anthony Stover Age/Sex: 33/F MR#: [id number] Page 1 of 1 Assessment & Plan Assessment & Plan (1) Cervical cancer screening: Comment: 08/08/2023 Pap is negative with negative HPV. Code(s): Z12.4 - Encounter for screening for malignant neoplasm of cervix Category: Medical (2) Abnormal menses: Code(s): N92.6 - Irregular menstruation, unspecified Category: Medical (3) Morbid obesity due to excess calories: Code(s): E66.01 - Morbid (severe) obesity due to excess calories Category: Medical Plan I reviewed the ultrasound and lab findings with her in detail show all of the levels and also some trends. She is not apparently anemic there were no major aberrations with any of her labs and her thyroid level was within normal limits however she is still is getting very heavy periods and she does occasionally miss. Discussed options available to manage her menses she is not interested control method or Mirena at time she had it in the past. Discussed that at this BMI it has almost just a matter of time until there start to be other challenges start showing themselves in numbers and scans for her health, and there can be problems such as fatty liver disease, diabetes, pre diabetes, issues with cardiac function, kidney function, etc. etc. All above and beyond the menstrual changes that she is already experiencing.. She and her were talking last night, he would love to have another baby with her. Her daughter that she had with him is 9 years old and he has 2 other children as well. She says he has health problems with his diabetes can not ejaculate.. I discussed that if she did get now it would be a high-risk and she did not really understand why, and I shared that she will be over 34 when she deliver, her body mass index alone puts her in a high-risk category, and even if her baby was fine, she certainly would need lots of evaluations and surveillance in the and there maybe further interventions that were not required in the past when she was 160 lb when she had her daughter 9 years ago. Discussed that the difficulties would be largely for her health, and I recommend that if she were considering , that losing weight 1st is really what is necessary. She shared that she was involved in the weight management program years ago and went through all the classes and knows what to do and her problem is getting motivated, and she feels like she is more motivated now. what happened before she just got scared about the surgery, but also then in the meantime, her father , and then a sibling , then she had a total of 3 close family members that all in a short period of time and she gained a lot of her weight in that time. reviewed that it is common to turn to food to cope in these times of difficulty. Reviewed that it isn't just about changing diet but she needs to actively add more exercise into her reaching discussed ways to add more walking steps into her day she is already trying to part far away from where she needs to be and we explored places she could go walking that might closer to her house or have a track or be nice her to walk around like the [place]. She has an appointment with her partner care Saturday she is going to be having surgery for a breast abscess that has been recurring often on over the last 2 years. Encouraged her to ask any other questions while she is there at that visit she believes she knows what she needs to do in terms of weight loss. In terms of menses management if she has not interested in the Mirena or another control method to regulate and lighten her menses those would be the best available options and since she is still open that limits methods as well. Again at this weight would be extreme high-risk, and if she did get she should start care at the very outset at [facility]. Coding Level of Care Code Est Pt Level 3 (42824) Complex EM visit Add On G2211 Diagnoses Cervical cancer screening Z12.4 Abnormal menses N92.6 Morbid obesity due to excess calories E66.01 Time Spent (min) 45 Comment 100% of the time spent exploring the challenges she has faced and trying to be healthy
== END 2023-09-13 10:06 | disposition home or self-care (01) ==
LOC: HO.HWSM 08:54
PROVIDERS: PCP Internal Medicine; Visit Provider Advanced Practice Midwife
DX: Z12.4 Encounter for screening for malignant neoplasm of cervix (principal); N92.6 Irregular menstruation, unspecified; E66.01 Morbid (severe) obesity due to excess calories
CPT/HCPCS: 99213; G2211

== ENCOUNTER → 2023-09-13 08:54 | Outpatient (BNVA) | payer OTHER, SELFPAY | PROVIDERS: PCP Internal Medicine; Visit Provider Advanced Practice Midwife | DX: N92.6 Irregular menstruation, unspecified (principal); E66.01 Morbid (severe) obesity due to excess calories; Z68.43 Body mass index [BMI] 50.0-59.9, adult | CPT/HCPCS: 99212 ==

== ENCOUNTER 2023-09-16 09:22 | Outpatient (AMB) | payer OTHER, SELFPAY ==
[2023-09-16 09:28] VITALS: BP 116/74; PULSE 67; O2SAT 97; BMI 57.5
--- NOTE | 2023-09-16 09:28 | A.OFFPC_ITS ---
Vital Signs 09/16/23 09:28 Height 5 ft 4 in Weight 335 lb 0.4 oz BMI 57.5 BP 116/74 Blood Pressure Location Lt brachial Position Sitting Pulse 67 Pulse Source Pulse Oximeter Pulse Oximetry (%) 97 Oxygen Delivery Method Room Air Intake Visit Reasons: lump around nipple,red and painful Electrical Engineering Drafting Officer Required: No Accompanied by: Self / Same As Patient Allergies No Known Allergies [No Known Allergies*] Allergy (Verified 09/16/23 09:55) Medication List - Last Reconciled 09/16/23 by Leticia Linares MD albuterol sulfate 90 mcg/actuation (Ventolin HFA) 2 puffs PO Q4-6H PRN 30 days amoxicillin-pot clavulanate 500-125 mg (Augmentin) 1 tab PO TID 10 days bupropion HCl XL 300 mg PO QAM 90 days cholecalciferol (vitamin D3) 25 mcg PO DAILY 90 days oxycodone-acetaminophen 5-325 mg (Percocet) 1 tab PO TID PRN 7 days simethicone (Gas Relief (simethicone)) 180 mg PO BID PRN 7 days sulfamethoxazole-trimethoprim 800-160 mg (Bactrim DS) 1 tab PO BID 10 days Tobacco use date assessed: 09/16/23 Dental Screening Dental Screen Date: 06/11/23 HPI HPI Comments History of Present Illness Details This is a 33-year-old female with mild recurrent major depression and morbid obesity that comes today complaining of a lump in left breast located at 10:00 o'clock that has been bothering her since June. She already had a course of antibiotics and now is taking antibiotics with significant relieved. Mammogram and ultrasound were done showing chronic mastitis. On ultrasound will be repeated. The area is red and indurated. She will see surgery this month. Depression stable with bupropion. She is morbidly obese with a BMI of 57.5 and I will start her on Wegovy which was prescribed before but she did not started because pharmacies were out of stock. She also has asthma and use her rescue inhaler less than once a month. [facility] Medical History Asthma Surgical History Hx of tonsillectomy Family History Maternal Aunt Breast cancer Mother Diabetes Fibromyalgia Maternal Grandmother Breast cancer Father End-stage renal disease on hemodialysis Diabetes Father No problems noted. Family/Other Mental health disorder Brother No problems noted. Social History Household Members: Spouse and Children Housing: Apartment Alcohol intake: current Alcohol intake frequency: holidays/special occasions only Alcohol type: beer Patient Tobacco Use Status: Current everyday Tobacco user Tobacco use type: Cigarette Cigarettes Per Day: 5 e-Cigarette/Vaping Use: Never Used Second Hand Smoke Exposure: No service: No Current occupational status: employed Current occupational exposures/hazards: No Cognitive needs: No Hearing needs: No Vision needs: No Female Reproductive History Menstrual Age of Menarche: 10 Questionnaire Thrive Questionnaire Date Thrive assessed: 06/11/23 AUDIT C Alcohol Use Questionnaire (AUDIT-C) 1. How often do you have a drink containing alcohol?: Monthly or less 2. How many drinks containing alcohol do you have on a typical day when you are drinking?: 1 or 2 3. How often do you have six or more drinks on one occasion?: Never Total Score: 1 Score Reviewed/Action Taken: No RODOLFO-7 AMB Questionnaire RODOLFO-7 Date RODOLFO - 7 assessed: 06/11/23 Source: Developed by Drs. Manfred Hester, Kiesha Murray, Galileo Boyd and colleagues, with an educational katelyn from [employer]. Review of Systems Const All systems reviewed & are unremarkable except as noted in HPI and below Resp Denies cough Skin/Breast Reports breast mass and Reports erythema Physical exam (Primary Care) Vital Signs: Last Vital Signs Pulse 67 09/16/23 09:28 BP 116/74 09/16/23 09:28 Pulse Ox 97 09/16/23 09:28 Oxygen Delivery Method Room Air 09/16/23 09:28 BMI result Body Mass Index 57.5 BMI Assessment/Plan discussion: High BMI High, discussed plan: lifestyle, weight reduction, dietary and physical activity Tobacco/Smoking Status: Tobacco use Status Tobacco use date assessed 09/16/23 09/16/23 09:32 Patient Tobacco Use Status Current everyday Tobacco 07/08/24 09:32 Tobacco use type Cigarette 09/16/23 09:32 e-Cigarette/Vaping Use Never Used 09/16/23 09:32 Are you ready to quit: Yes Tobacco cessation counseling provided: No Thrive Assessment: Date of Thrive Assessment Date Thrive assessed 06/11/23 09/16/23 09:32 Chest Breast/axilla inspection: abnormal inspection of the breast (redness and induration) left erythema Breast/axilla palpation: abnormal palpation of the breast (left palpable lump at 10 o'clock) left Resp Effort & Inspection: normal respiratory effort Auscultation: clear to auscultation bilaterally Cardio Jugular venous distension: no JVD Rate: regular rate Rhythm: regular rhythm Heart sounds: S1 normal heart sound present and S2 normal heart sound present Extrem General: Yes full ROM Assessment and Plan Assessment & Plan (1) Mild recurrent major depression: Code(s): F33.0 - Major depressive disorder, recurrent, mild Plan: Continue bupropion. (2) Morbid obesity due to excess calories: Code(s): E66.01 - Morbid (severe) obesity due to excess calories Plan: Start diet and exercise. BMI goal is less than 30. Start Wegovy. (3) Lump of left breast: Comment: at 10 o'clock Code(s): N63.20 - Unspecified lump in the left breast, unspecified quadrant Plan: Ultrasound ordered to be repeated. Follow-up with surgery. (4) Asthma: Code(s): J45.909 - Unspecified asthma, uncomplicated Plan: Use rescue inhaler as needed. Orders: Orders US breast LT complete Today N61.1 - Abscess of the breast and nipple Medications: New semaglutide (weight loss) (Wegovy) administer weeks 1 through 4 of therapy 0.25 mg (0.5 mL) subcut QWEEK 2 mL 0RF 4 weeks E66.01 - Morbid (severe) obesity due to excess calories Coding Level of Care Code Est Pt Level 4 (19167) Complex EM visit Add On G2211 Diagnoses Mild recurrent major depression F33.0 Morbid obesity due to excess calories E66.01 Lump of left breast N63.20 Asthma J45.909 Time Spent (min) 35
== END 2023-09-16 10:03 | disposition home or self-care (01) ==
PROVIDERS: PCP Internal Medicine; Visit Provider Internal Medicine
DX: N63.22 Unspecified lump in the left breast, upper inner quadrant (principal); F33.0 Major depressive disorder, recurrent, mild; J45.909 Unspecified asthma, uncomplicated
CPT/HCPCS: 99214; G2211

== ENCOUNTER 2023-09-23 09:58 | Outpatient (AMB) | payer OTHER, SELFPAY ==
[2023-09-23 10:01] VITALS: BP 118/58; PULSE 70; BMI 57.5
--- NOTE | 2023-09-23 10:01 | MHC.OFFVIS ---
Vital Signs 09/23/23 10:01 Height 5 ft 4 in Weight 335 lb 0.407 oz BMI 57.5 BP 118/58 L Blood Pressure Location Rt brachial Position Sitting Pulse 70 Intake Visit Reasons: Abscess of breast & nipple Intake Note: This patient presents for an assessment for Abscess of breast & nipple, possible I&D. Patient c/o; reports pain, reports has been takin abx for the past month with no improvements , reports redness. Roof Service Technician Required: No Accompanied by: Child Allergies No Known Allergies [No Known Allergies*] Allergy (Verified 09/23/23 10:10) HPI HPI Abscess of breast & nipple: Details: 33-year-old female referred for a question of breast abscess. She has been diagnosed to have mastitis about 3 years ago and continues to have periodic redness and tenderness of the left breast. She has had imaging studies which did not reveal any mass on the area She denies any discharge Over the years, she says that her nipple has retracted because of this inflammation . She says that although the redness and pain had been worse before, this still bothers her. She denies any family history of breast cancer. [facility] Medical History (Updated 09/23/23 @ 10:18 by Sky Wall MD) Mastitis chronic Morbid drug-induced obesity Asthma Surgical History Hx of tonsillectomy Family History Maternal Aunt Breast cancer Mother Diabetes Fibromyalgia Maternal Grandmother Breast cancer Father End-stage renal disease on hemodialysis Diabetes Father No problems noted. Family/Other Mental health disorder Brother No problems noted. Social History Household Members: Spouse and Children Housing: Apartment Alcohol intake: current Alcohol intake frequency: holidays/special occasions only Alcohol type: beer Patient Tobacco Use Status: Current everyday Tobacco user Tobacco use type: Cigarette Cigarettes Per Day: 5 e-Cigarette/Vaping Use: Never Used Second Hand Smoke Exposure: No service: No Current occupational status: employed Current occupational exposures/hazards: No Cognitive needs: No Hearing needs: No Vision needs: No Female Reproductive History Menstrual Age of Menarche: 10 Review of Systems Const Denies chills and Denies fever(s) Card Denies chest pain, Denies dyspnea and Denies dyspnea on exertion Resp Denies cough, Denies dyspnea and Denies dyspnea on exertion GI Denies hematochezia and Denies change in bowel habits Denies hematuria Musc Denies back pain and Denies limited range of motion Neuro Denies focal weakness and Denies convulsions Psych Denies depression and Denies mood swings Physical Exam Const Other: Appears morbidly obese General: comfortable and no acute distress Orientation/consciousness: patient oriented x3 Neck Neck: Yes no lymphadenopathy Chest Other: Left breast with some area of redness around the nipple-areolar complex, mild induration, no discharge, note of nipple retraction seen, no palpable mass Resp Auscultation: clear to auscultation bilaterally Cardio Rhythm: regular rhythm GI Palpation (GI): Soft to palpation, nontender and no guarding Neuro General: patient oriented x3 Assessment & Plan Assessment & Plan (1) Mastitis chronic: Code(s): N60.19 - Diffuse cystic mastopathy of unspecified breast Category: Medical Plan: She has had chronic mastitis with recurrent redness and induration of the area just surrounding the nipple-areolar complex superiorly. Her ultrasound from June, suggest fibrotic changes underneath this along with some fat necrosis She is scheduled for another mammogram next week. I told her that it may be best to review this and I will see her in the office thereafter I did tell her that there will be some benefit to doing frequent warm soaks to the area. I also advised her on the benefits of weight loss in view of her morbid obesity. Her body mass index is dangerously high at 57. Coding Level of Care Code New Pt Level 3 (55632) Diagnoses Mastitis chronic N60.19
== END 2023-09-23 10:20 | disposition home or self-care (01) ==
PROVIDERS: PCP Internal Medicine; Referring Provider Internal Medicine; Visit Provider Surgery
DX: N60.12 Diffuse cystic mastopathy of left breast (principal)
CPT/HCPCS: 99203

== ENCOUNTER → 2023-09-23 09:58 | Outpatient (BNVA) | payer OTHER, SELFPAY | PROVIDERS: PCP Internal Medicine; Referring Provider Internal Medicine; Visit Provider Surgery | DX: N60.19 Diffuse cystic mastopathy of unspecified breast (principal) | CPT/HCPCS: 99202 ==

== ENCOUNTER 2023-09-26 15:21 | Outpatient (REF) | payer OTHER, SELFPAY ==
--- NOTE | ~2023-09-26 | US_ITS ---
EXAMINATION: US DIAGNOSTIC ULTRASOUND BREAST, LEFT CLINICAL INFORMATION: 33-year-old female, persistent retroareolar periareolar left breast mastitis. Patient has completed one month of antibiotics with little improvement. Patient has appointment with Dr. Wall in surgery. COMPARISON: 06/13/2023, 11/28/2021, 03/16/2021. TECHNIQUE: Ultrasound of the left breast is performed with real-time delaney scale imaging and color Doppler. Attention was given to the retroareolar region as before. FINDINGS: In the retroareolar region of the left breast is nipple inversion with shadowing, as well as a sizable area of marked irregular hypoechoic tissue with surrounding hyperechoic fat and internal hyperechoic specular debris, findings most consistent with regions of fat necrosis. These appear to extend medially into the palpable region at 11:00, where there is edema within the fat which may indicate tracking infection although there is very little color Doppler flow to this region. There is a small amount of fluid subjacent to the periareolar skin, in keeping with continued active mastitis. The retroareolar region is hyperemic on color Doppler signal as well. Overall, findings are highly suggestive of recurrent and/or smoldering infectious mastitis affecting the nipple and retroareolar region predominantly. Given the persistence of abnormality, granulomatous mastitis could be considered as well as atypical mycobacterial mastitis. No drainable gross abscess is seen. Recommend surgical aspiration and Gram stain, culture and sensitivities, as well as stains for mycobacterial infectious agents. US/US breast LT limited mamm only IMPRESSION: -Findings in the left retroareolar region which are highly suggestive of scarring and fat necrosis, likely from chronic or smoldering mastitis. There is likely be superimposed mastitis as detailed above at this time. No drainable abscess or fluid collection. -Recommend surgical aspiration/biopsy with Gram stain, culture and sensitivities, as well as stains for mycobacterial infectious agents. -Given these findings, recommend continued clinical management and completion of the full course of antibiotic therapy, with rescanning as necessary if an abscess is suspected. ASSESSMENT: BI-RADS 2 - Benign Findings RECOMMENDATION: 1. Patient should be managed based on the clinical impression.
== END 2023-09-26 15:22 | disposition home or self-care (01) ==
LOC: HO.MAMMO 15:21
PROVIDERS: PCP Internal Medicine; Visit Provider Internal Medicine
DX: N61.1 Abscess of the breast and nipple (principal)
CPT/HCPCS: 76642

== ENCOUNTER → 2023-09-26 15:23 | Outpatient (BNV) | payer OTHER, SELFPAY | PROVIDERS: PCP Internal Medicine; Visit Provider Radiology Diagnostic Radiology | DX: N61.0 Mastitis without abscess (principal) | CPT/HCPCS: 76642 ==

== ENCOUNTER 2023-10-07 14:57 | Outpatient (AMB) | payer OTHER, SELFPAY ==
--- NOTE | 2023-10-07 14:59 | MHC.OFFVIS ---
Vital Signs 10/07/23 15:04 Height 5 ft 4 in Weight 325 lb BMI 55.8 BP 142/84 H Blood Pressure Location Lt brachial Position Sitting Pulse 82 Intake Visit Reasons: 2 week follow up Abscess of breast & nipple Intake Note: This patient presents for a two week follow up Abscess of left breast & nipple. Patient c/o: denies any concerns at the time of visit Technical Applications Specialist Required: No Elastic Yarn Twister: Elastic Yarn Twister Present Accompanied by: Self / Same As Patient Allergies No Known Allergies [No Known Allergies*] Allergy (Verified 10/07/23 15:04) Medication List - Last Reconciled 10/07/23 by Sky Wall MD albuterol sulfate 90 mcg/actuation (Ventolin HFA) 2 puffs PO Q4-6H PRN 30 days bupropion HCl XL 300 mg PO QAM 90 days cholecalciferol (vitamin D3) 25 mcg PO DAILY 90 days oxycodone-acetaminophen 5-325 mg (Percocet) 1 tab PO TID PRN 7 days semaglutide (weight loss) (Wegovy) 0.25 mg (0.5 mL) subcut QWEEK 4 weeks simethicone (Gas Relief (simethicone)) 180 mg PO BID PRN 7 days sulfamethoxazole-trimethoprim 800-160 mg (Bactrim DS) 1 tab PO BID 10 days HPI HPI 2 week follow up Abscess of breast & nipple: Details: She is here for follow-up for her breast pain and tenderness on the left. I had seen her 2 weeks ago for this. She now feels much better. She says her pain has improved significantly. She denies any drainage on the area of the nipple She did have a follow-up ultrasound done as well. [facility] Medical History Mastitis chronic Morbid drug-induced obesity Asthma Surgical History Hx of tonsillectomy Family History Maternal Aunt Breast cancer Mother Diabetes Fibromyalgia Maternal Grandmother Breast cancer Father End-stage renal disease on hemodialysis Diabetes Father No problems noted. Family/Other Mental health disorder Brother No problems noted. Social History Household Members: Spouse and Children Housing: Apartment Alcohol intake: current Alcohol intake frequency: holidays/special occasions only Alcohol type: beer Patient Tobacco Use Status: Current everyday Tobacco user Tobacco use type: Cigarette Cigarettes Per Day: 5 e-Cigarette/Vaping Use: Never Used Second Hand Smoke Exposure: No service: No Current occupational status: employed Current occupational exposures/hazards: No Cognitive needs: No Hearing needs: No Vision needs: No Female Reproductive History Menstrual Age of Menarche: 10 Review of Systems Const Denies chills and Denies fever(s) Card Denies chest pain, Denies dyspnea and Denies dyspnea on exertion Resp Denies cough, Denies dyspnea and Denies dyspnea on exertion GI Denies hematochezia and Denies change in bowel habits Denies hematuria Musc Denies back pain and Denies limited range of motion Neuro Denies focal weakness and Denies convulsions Psych Denies depression and Denies mood swings Physical Exam Vital Signs: Last Vital Signs Pulse 82 10/07/23 15:04 BP 142/84 H 10/07/23 15:04 BMI result Body Mass Index 55.8 Const Other: Morbidly obese General: comfortable and no acute distress Chest Other: No cellulitis, no fluctuance, no induration on the left breast, no significant tenderness at this time Resp Effort & Inspection: normal respiratory effort Cardio Rate: regular rate Assessment & Plan Assessment & Plan (1) Mastitis chronic: Code(s): N60.19 - Diffuse cystic mastopathy of unspecified breast Category: Medical Plan: Her followup ultrasound suggest necrosis in the area of the nipple-areolar complex. I did explain these findings to her. She feels much better. There is no suggestion of any abscess. I did tell her that 1 of the option is to do an aspiration or biopsy of the area. She says she does not want any invasive measures for now. She says she feels much improved. She plans to lose weight as well as her body mass index is 55 She says she will call me down the line if she has any recurrent problems with regards to the left breast. Coding Level of Care Code Est Pt Level 3 (24536) Diagnoses Mastitis chronic N60.19
[2023-10-07 15:04] VITALS: BP 142/84; PULSE 82; BMI 55.8
== END 2023-10-07 15:13 | disposition home or self-care (01) ==
PROVIDERS: PCP Internal Medicine; Visit Provider Surgery
DX: N60.12 Diffuse cystic mastopathy of left breast (principal)
CPT/HCPCS: 99213

== ENCOUNTER → 2023-10-07 14:57 | Outpatient (BNVA) | payer OTHER, SELFPAY | PROVIDERS: PCP Internal Medicine; Visit Provider Surgery | DX: N64.4 Mastodynia (principal); M60.19 Interstitial myositis, multiple sites | CPT/HCPCS: 99212 ==

== ENCOUNTER 2024-08-17 08:15 | Outpatient (REF) | payer OTHER, SELFPAY ==
[2024-08-17 10:18] LABS: Alanine Aminotransferase 23 U/L (0-31); Albumin Level 4.2 g/dL (3.5-5.0); Alkaline Phosphatase 78 U/L (39-117); Anion Gap 8 (12-20); Aspartate Amino Transferase 21 U/L (5-31); Bilirubin Total 0.2 mg/dL (0.0-1.0); Blood Urea Nitrogen 12 mg/dL (9-16); Calcium 9.1 mg/dL (8.4-10.2); Carbon Dioxide 30 mmol/L (22-29); Chloride 106 mmol/L (96-108); Cholesterol 198 mg/dL (<200); Estimated Glomerular Filt Rate > 60; Glucose Fasting 93 mg/dL (60-99); HDL Cholesterol 51 mg/dL (>40); LDL Cholesterol Calculated 129 mg/dL (<100); Potassium 4.3 mmol/L (3.3-5.1); Sodium 140 mmol/L (135-145); Total Protein 6.6 g/dL (6.5-8.0); Triglycerides 90 mg/dL (<150)
[2024-08-17 10:25] LABS: Vitamin D 25-OH Total 14.6 ng/mL (>30)
[2024-08-17 10:27] LABS: HBS Num1 37.39 mIU/mL (0-7.99); HBc Num1 0.08 S/CO (0.00-0.79); HBsAGNum1 0.35 S/CO (0.00-0.99); Hepatitis B Core Antibody Nonreactive (Nonreactive); Hepatitis B Surface Antigen Negative (Negative); ~Hepatitis B Surface Antibody REACTIVE (Nonreactive)
[2024-08-19 01:24] LABS: Rubella IgG Antibody 1.19 Index
[2024-08-19 05:57] LABS: Mumps Virus IgG Antibody <9.00 AU/mL
[2024-08-20 09:29] LABS: TS Negative Control Passed; TS Panel A 0; TS Panel B 0; TS Positive Control Passed; TSpotTB Negative (Negative)
== END 2024-08-17 08:16 | disposition home or self-care (01) ==
LOC: HO.LAB 08:15
PROVIDERS: PCP Internal Medicine; Visit Provider Internal Medicine
DX: Z00.00 Encounter for general adult medical examination without abnormal findings (principal); Z23 Encounter for immunization; Z11.1 Encounter for screening for respiratory tuberculosis; F33.0 Major depressive disorder, recurrent, mild; E55.9 Vitamin D deficiency, unspecified; E66.01 Morbid (severe) obesity due to excess calories; Z68.43 Body mass index [BMI] 50.0-59.9, adult; Z71.3 Dietary counseling and surveillance
CPT/HCPCS: 36415; 80053; 80061; 82306; 86481; 86704; 86706; 86735; 86762; 86765; 86787; 87340; 90471; 90715; 96127; 99395

== ENCOUNTER 2024-08-17 08:15 | Outpatient (AMB) | payer OTHER, SELFPAY ==
--- NOTE | 2024-08-17 08:20 | MHC.PC.OV ---
Vital Signs 08/17/24 08:21 Height 5 ft 4 in Weight 316 lb BMI 54.2 BP 130/82 Blood Pressure Location Lt brachial Position Sitting Intake Visit Reasons: PE Intake Note: Patient here for a physical exam Medical Representative Required: No Accompanied by: Self / Same As Patient Allergies No Known Allergies [No Known Allergies*] Allergy (Verified 08/17/24 08:45) Medication List - Last Reconciled 08/17/24 by Leticia Linares MD albuterol sulfate 90 mcg/actuation (Ventolin HFA) 2 puffs PO Q4-6H PRN 30 days bupropion HCl XL 300 mg PO QAM 90 days cholecalciferol (vitamin D3) 25 mcg PO DAILY 90 days sulfamethoxazole-trimethoprim 800-160 mg (Bactrim DS) 1 tab PO BID 10 days Tobacco use date assessed: 08/17/24 Dental Screening Dental Screen Date: 08/17/24 Did you have a dental visit in the last 12 months?: Yes Did you have a dental problem in the last 6 months where you did not have access to dental care?: No Was dental information given to patient?: Patient has dentist HPI HPI Comments History of Present Illness Details The patient is a 34-year-old female presenting for a physical exam and Tdap vaccination. She has a documented history of mild depression and vitamin D deficiency, currently managed with bupropion and vitamin D supplements. She has a significant family history of diabetes and renal disease. The patient smokes five cigarettes daily and has intermittently attempted smoking cessation. She has a BMI of 54.2, indicating morbid obesity, which she correlates with left knee pain. She reports a history of tonsillectomy and is responsible for caregiving tasks at home, which influences her eating patterns and stress levels. She has recently acquired a CPAP machine to address sleep apnea, and has been actively working towards balancing her work schedule and health. - Tdap vaccine administration planned - Vitamin D supplementation for deficiency - Counseling on smoking cessation, including reference to Quitworks - Discussion on healthy lifestyle changes including diet, portion control, and exercise PFSH Medical History Mastitis chronic Morbid drug-induced obesity Asthma Surgical History Hx of tonsillectomy Family History Maternal Aunt Breast cancer Mother Diabetes Fibromyalgia Maternal Grandmother Breast cancer Father End-stage renal disease on hemodialysis Diabetes Father No problems noted. Family/Other Mental health disorder Brother No problems noted. Social History Household Members: Spouse and Children Housing: Apartment Alcohol intake: current Alcohol intake frequency: holidays/special occasions only Alcohol type: beer Patient Tobacco Use Status: Current everyday Tobacco user Tobacco use type: Cigarette Cigarettes Per Day: 5 e-Cigarette/Vaping Use: Never Used Second Hand Smoke Exposure: No service: No Current occupational status: employed Current occupational exposures/hazards: No Cognitive needs: No Hearing needs: No Vision needs: No Female Reproductive History Menstrual Age of Menarche: 10 Questionnaire PHQ-9 Over the last 2 weeks, how often have you been bothered by any of the following problems? 1. Little interest or pleasure in doing things: more than half the days 2. Feeling down, depressed, or hopeless: not at all 3. Trouble falling or staying asleep, or sleeping too much: not at all 4. Feeling tired or having little energy: several days 5. Poor appetite or overeating: more than half the days 6. Feeling bad about yourself - or that you are a failure or have let yourself or your family down: not at all 7. Trouble concentrating on things, such as reading the newspaper or watching television: not at all 8. Moving or speaking so slowly that other people could have noticed. Or the opposite - being so fidgety or restless that you have been moving around a lot more than usual: not at all 9. Thoughts that you would be better off or of hurting yourself in some way: not at all Total score: 5 Depression Screening Interpretation: Positive Depression Screening Follow-up: Existing condition and Follow-up Visit Requested Depression Screening Done: Yes 30069 - PHQ-9 Billing: Yes Source: Developed by Drs. Manfred Hester, Kiesha Murray, Galileo Boyd and colleagues, with an educational katelyn from [employer]. Thrive Questionnaire Date Thrive assessed: 08/10/24 I am a: Patient What is your living situation today?: I have a steady place to live Within the past 12 months, did the food you bought not last and you didn't have the money to get more?: Often true Within the past 12 months, did you worry whether your food would run out before you got money to buy more?: Never true Do you have trouble paying for medicines?: No Do you have trouble getting transportation to medical appointments?: No Do you have trouble paying your heating and electricity bill?: No Do you have trouble taking care of your child, family member or friend?: No Do you have trouble with day-to-day activities such as bathing, preparing meals, shopping, managing finances, etc.?: No Are you currently unemployed and looking for a job?: No Are you interested in more education?: No Please select the resources that you would like help with: None Currently or been in a relationship where the following occur: I choose not to answer THRIVE Score: 1 AUDIT C Alcohol Use Questionnaire (AUDIT-C) 1. How often do you have a drink containing alcohol?: Monthly or less 2. How many drinks containing alcohol do you have on a typical day when you are drinking?: 1 or 2 3. How often do you have six or more drinks on one occasion?: Never Total Score: 1 Score Reviewed/Action Taken: No RODOLFO-7 AMB Questionnaire RODOLFO-7 Date RODOLFO - 7 assessed: 08/17/24 Feeling nervous, anxious, or on edge: 2 = More than half the days Not being able to stop or control worryin = Several days Worrying too much about different things: 1 = Several days Trouble relaxin = Several days Being so restless that it is hard to sit still: 0 = Not at all Becoming easily annoyed or irritable: 1 = Several days Feeling afraid as if something awful might happen: 0 = Not at all Total RODOLFO-7 score (0-4 normal; 5-9 mild; 10-14 moderate; 15-21 severe): 6 Source: Developed by Drs. Manfred Hester, Kiesha Murray, Galileo Boyd and colleagues, with an educational katelyn from [employer] RODOLFO-7 Assessment Billing RODOLFO-7 Assessment Tool: RODOLFO-7 Assessment 30590 Review of Systems Const All systems reviewed & are unremarkable except as noted in HPI and below Card Denies chest pain at rest, Denies chest pain with activity, Denies edema, Denies irregular heart rhythm, Denies claudication, Denies dyspnea, Denies dyspnea on exertion, Denies orthopnea, Denies paroxysmal nocturnal dyspnea and Denies slow heart rate Resp Denies cough, Denies dyspnea and Denies dyspnea on exertion GI Denies abdominal pain, Denies change in bowel habits, Denies excessive flatus, Denies nausea and Denies vomiting Denies urinary incontinence, Denies urinary hesitancy and Denies urinary urgency Musc Denies abnormal gait, Denies atrophy, Denies deformity and Denies limited range of motion Skin/Breast Denies bleeding lesions, Denies changing lesions and Denies rash Neuro Denies abnormal gait, Denies behavioral changes and Denies lack of coordination Psych Denies behavioral changes Physical exam (Primary Care) Vital Signs: Last Vital Signs BP 130/82 08/17/24 08:21 BMI result Body Mass Index 54.2 BMI Assessment/Plan discussion: High BMI High, discussed plan: lifestyle, weight reduction, dietary and physical activity Tobacco/Smoking Status: Tobacco use Status Tobacco use date assessed 08/17/24 08/17/24 08:26 Patient Tobacco Use Status Current everyday Tobacco 08/17/24 08:26 Tobacco use type Cigarette 08/17/24 08:26 e-Cigarette/Vaping Use Never Used 08/17/24 08:26 Are you ready to quit: Yes Tobacco cessation counseling provided: Yes Items discussed: QuitWorks Relapse Prevention: discussed the importance of a supportive environment, discussed negative mood or depression after quitting, weight gain after smoking is common and discussed dietary, exercise and/or lifestyle changes Number of minutes spent counselin CPT code: 22337 - 4-10 Minutes PHQ-9: PHQ-9 Score PHQ-9: Total score 5 08/17/24 08:59 Depression Screening Interpretation: Positive Depression Screening Follow-up: Existing condition and Follow-up Visit Requested Thrive Assessment: Date of Thrive Assessment Date Thrive assessed 08/10/24 08/17/24 08:26 Currently or been in a relationship where the following occur: I choose not to answer HENMS Head: Yes normal to inspection, Yes normocephalic and Yes atraumatic Ears: external ears normal Eyes General: appearance normal, both eyes and all related structures Eyelids: Yes eyelids normal Conjunctivae: conjunctivae normal Neck Neck: Yes normal visual inspection and Yes supple Resp Effort & Inspection: normal respiratory effort Auscultation: clear to auscultation bilaterally Cardio Jugular venous distension: no JVD Rate: regular rate Rhythm: regular rhythm Heart sounds: S1 normal heart sound present and S2 normal heart sound present GI Inspection: Yes normal to inspection Palpation (GI): Soft to palpation and nontender Auscultation: normal bowel sounds Skin General skin exam: no rashes or lesions noted Neuro General: no focal motor deficits Extrem General: Yes full ROM Psych Appearance: grossly normal Immunizations Boostrix Tdap 2.5 Lf unit-8 mcg-5 Lf/0.5 mL intramuscular syringe Performing Provider: Leticia Linares MD Performing [facility] [place] [facility] Administered by: GASPER Eaton on 08/17/24 09:00 Dose Route Admin Location Dispensed Lot Number Expiration Date NDC Procurement Internship 0.5 mL IM Left Deltoid 0.5 mL [id number] 11/07/26 22199-502-29 [employer] VIS Given Date VIS Provided VIS Publication Date 08/17/24 Single Vaccine 24 Eligibility Eligibility Date Funding Source Not [facility] Eligible 08/17/24 Private Coding Level of Care Code Est Pt Prev Care 18-39y(20066) Diagnoses Physical exam Z00.00 Mild recurrent major depression F33.0 Morbid obesity due to excess calories E66.01 Additional Codes RODOLFO-7 Assessment Billing - RODOLFO-7 Assessment Tool: RODOLFO-7 Assessment 01499 ([id number]) PHQ-9 - 29004 - PHQ-9 Billing: Yes ([id number]) Vital Signs *Quality* - CPT code: 02987 - 4-10 Minutes ([id number]) Time Spent (min) 32 Assessment & Plan Assessment & Plan (1) Physical exam: Code(s): Z00.00 - Encounter for general adult medical examination without abnormal findings Category: Medical (2) Mild recurrent major depression: Code(s): F33.0 - Major depressive disorder, recurrent, mild Category: Medical (3) Morbid obesity due to excess calories: Code(s): E66.01 - Morbid (severe) obesity due to excess calories Category: Medical Plan The patient will receive the Tdap vaccine today to keep her immunizations current. She will maintain her current regimen of bupropion 300 mg for mild depression, and vitamin D supplementation for the deficiency. Lifestyle and nutritional counseling focusing on healthier eating and increased physical activity has been provided, considering her BMI.. The patient is encouraged to pursue smoking cessation, with [employer] as a supportive resource. Her left knee pain may benefit from weight loss and regular exercise, and we will monitor over time, adapting care as needed. Patient was informed and verbally consented to the use of an ambient scribe for clinic note documentation during this visit. Orders: Orders Vitamin D 25-OH Total Today E55.9 - Vitamin D deficiency, unspecified Varicella IgG Antibody Today Z23 - Encounter for immunization Mumps Virus IgG Antibody Today Z23 - Encounter for immunization Rubella IgG Antibody Today Z23 - Encounter for immunization Comprehensive [place]. Panel Fast Today Z00.00 - Encounter for general adult medical examination without abnormal findings Lipid Panel Today Z00.00 - Encounter for general adult medical examination without abnormal findings TDaP Immunization Today Z23 - Encounter for immunization T Spot TB Today Z11.1 - Encounter for screening for respiratory tuberculosis Rubeola IgG (Measles) Today Z23 - Encounter for immunization Hepatitis B Profile Today Z23 - Encounter for immunization Medications: Refilled sulfamethoxazole-trimethoprim 800-160 mg (Bactrim DS) 1 tab PO BID 20 tabs 0RF 10 days
[2024-08-17 08:21] VITALS: BP 130/82; BMI 54.2
--- OUTSIDE RECORDS SUMMARY | 2024-08-17 08:21 | XMS_ITS | Clinical Summary ---
[facility] Organization [facility] Address [address] [place] [address] Care Team Providers Care Employment Assistant Name Role Phone Unavailable Primary Care Provider Unavailabl e Social History Tobacco Use Types Packs/Day Years Used Date Smoking Tobacco: Never Assessed Comments Unknown Sex and Gender Information Value Date Recorded Sex Assigned at Not on file Legal Sex Female 5:08 AM EST Gender Identity Not on file Sexual Orientation Not on file Plan of Treatment Health Maintenance Due Date Last Done Comments DTaP,Tdap,and Td Vaccines (1 - Tdap) 02/08/2008 Hepatitis B Vaccines (1 of 3 - 19+ 3-dose series) 02/08/2008 Cervical Cancer Screening: P ap Smear 2010 COVID-19 Vaccine ( - 2023-2 5 season) 2023 Influenza Vaccine (Season Ended) 2024 HIB Vaccines Aged Out No longer eligi ble based on patient's age to complete this topic HPV Vaccines Aged Out No longer eligi ble based on patient's age to complete this topic Hepatitis A Vaccines Aged Out No long er eligible based on patient's age to complete this topic IPV Vaccines Aged Out No longer eligi ble based on patient's age to complete this topic MMR Vaccines Aged Out No longer eligi ble based on patient's age to complete this topic Meningococcal ACWY Vaccine Aged Out N o longer eligible based on patient's age to complete this topic Meningococcal B Vaccine Aged Out No l onger eligible based on patient's age to complete this topic Pneumococcal Vaccine: Pediat rics (0 to 5 Years) and At-Risk Patients (6 to 64 Years) Aged Out No longer eligible b ased on patient's age to complete this topic RSV Immunization Patients Un sachin 20 months Aged Out No longer eligible b ased on patient's age to complete this topic Varicella Vaccines Aged Out No longer eligible based on patient's age to complete this topic
== END 2024-08-17 08:58 | disposition home or self-care (01) ==
LOC: HO.HMCH 08:15
PROVIDERS: PCP Internal Medicine; Visit Provider Internal Medicine
DX: Z00.00 Encounter for general adult medical examination without abnormal findings (principal); F33.0 Major depressive disorder, recurrent, mild; E66.01 Morbid (severe) obesity due to excess calories; Z68.43 Body mass index [BMI] 50.0-59.9, adult; Z23 Encounter for immunization; F17.210 Nicotine dependence, cigarettes, uncomplicated

== ENCOUNTER 2024-08-27 12:50 | Outpatient (AMB) | payer OTHER, SELFPAY ==
--- NOTE | 2024-08-27 13:12 | AM.OFFVISNUR ---
Intake Visit Reasons: MMR vaccine #1 Allergies No Known Allergies (No Known Allergies*) Allergy (Verified 08/17/24 08:45) Immunizations M-M-R II (PF) 1,000-12,500 TCID50/0.5 mL subcutaneous solution Performing Provider: Leticia Linares MD [facility] [place] [facility] Administered by: Susan Musa RN on 08/27/24 13:12 Dose Route Admin Location Dispensed Lot Number Expiration Date [facility] Car Wash Supervisor 0.5 mL subcut Right Arm 0.5 mL [id number] 06/19/25 9558-3435-98 [employer] Total Dispensed Waste 0.5 mL 0 % VIS Given Date VIS Provided VIS Publication Date 08/27/24 Single Vaccine 20 Eligibility Eligibility Date Funding Source Not [facility] Eligible 08/27/24 Private Assessment & Plan Assessment & Plan Orders: Orders MMR Immunization Today Z23 - Encounter for immunization Coding
--- OUTSIDE RECORDS SUMMARY | 2024-08-27 13:55 | XMS_ITS | Clinical Summary ---
Author Organization [facility] Address [address] [place] [address] Care Team Providers Care Gas Station Supervisor Name Role Phone Unavailable Primary Care Provider [...]
== END 2024-08-27 13:10 | disposition home or self-care (01) ==
LOC: HO.HMCH 12:50
PROVIDERS: PCP Internal Medicine; Visit Provider Internal Medicine
DX: Z23 Encounter for immunization (principal)

== ENCOUNTER → 2024-08-27 12:50 | Outpatient (BNVA) | payer OTHER, SELFPAY | PROVIDERS: PCP Internal Medicine; Visit Provider Internal Medicine | DX: Z23 Encounter for immunization (principal) | CPT/HCPCS: 90471; 90707 ==

== ENCOUNTER 2024-09-25 08:40 | Outpatient (AMB) | payer OTHER, SELFPAY ==
--- OUTSIDE RECORDS SUMMARY | 2024-09-25 08:43 | XMS_ITS | Clinical Summary ---
[facility] [address] [place] [address] Care Team Providers Care Ditto Machine Operator Name Role Phone Unavailable Primary Care Provider [...] - 2023-2 5 season) 2023 Influenza Vaccine (#1) 2024 HIB Vaccines Aged Out No longer [...] 5 Years) and At-Risk Patients (6 to 49 Years) Aged Out No longer eligible b ased on patient's age to complete this topic RSV Immunization Patients Un sachin 20 months Aged Out No longer eligible b ased on patient's age to complete this topic Varicella Vaccines Aged Out No longer eligible based on patient's age to complete this topic
--- NOTE | 2024-09-25 08:56 | AM.OFFVISNUR ---
Intake Visit Reasons: mmr vaccine # 2 Allergies No Known Allergies (No Known Allergies*) Allergy (Verified 08/17/24 08:45) Immunizations M-M-R II (PF) 1,000-12,500 TCID50/0.5 mL subcutaneous solution Performing Provider: Leticia Linares MD [facility] [place] [facility] Administered by: Claudia Crawford LPN on 09/25/24 08:56 Dose Route Admin Location Dispensed Lot Number Expiration Date [facility] Mold Unloader 0.5 mL subcut Left Arm 0.5 mL [id number] 06/19/25 8590-6784-66 [employer] Total Dispensed Waste 0.5 mL 0 % VIS Given Date VIS Provided VIS Publication Date 09/25/24 Single Vaccine 20 Eligibility Eligibility Date Funding Source Not [facility] Eligible 09/25/24 Private Assessment & Plan Assessment & Plan Orders: Orders MMR Immunization Today Z23 - Encounter for immunization Coding
== END 2024-09-25 08:59 | disposition home or self-care (01) ==
LOC: HO.HMCH 08:41
PROVIDERS: PCP Internal Medicine; Visit Provider Internal Medicine
DX: Z23 Encounter for immunization (principal)

== ENCOUNTER → 2024-09-25 08:40 | Outpatient (BNVA) | payer OTHER, SELFPAY | PROVIDERS: PCP Internal Medicine; Visit Provider Internal Medicine | DX: Z23 Encounter for immunization (principal) | CPT/HCPCS: 90471; 90707 ==